=== PATIENT | female | born 1965 | race Caucasian/White ===

== ENCOUNTER → 2019-10-16 08:42 | Outpatient (CLI) | payer OTHER, SELFPAY ==
--- NOTE | 2019-10-16 08:55 | XR_ITS ---
PROCEDURE: XR KNEE RT 4V CLINICAL INDICATION: right knee pain COMPARISON: No exams were available for comparison FINDINGS: There are mild osteoarthritic changes of the medial compartment and lateral compartment and moderate to severe osteoarthritic change of the patellofemoral joint greater along the lateral facet. Bony spurring is present at the tibial spines and intercondylar notch. IMPRESSION: Osteoarthritis greatest at the patellofemoral joint Dictated by: Omi Naidu MD 10/16/2019 11:48 Electronically signed by Omi Naidu MD in [place] 10/16/2019 11:48
--- NOTE | 2019-10-16 08:55 | XR_ITS ---
PROCEDURE: XR WRIST LT MIN 3V CLINICAL INDICATION: left wrist pain COMPARISON: No exams were available for comparison FINDINGS: No fracture or dislocation. Mild bony hypertrophic changes are present involving the distal and radial aspect of the scaphoid. There is a separate bony density at the lateral aspect of the ulnar styloid process which could be due to an old injury. IMPRESSION: No acute finding. Hypertrophic changes along the distal scaphoid laterally with possible old fracture of the radial styloid Dictated by: Omi Naidu MD 10/16/2019 11:47 Electronically signed by Omi Naidu MD in [place] 10/16/2019 11:47
== END ==
PROVIDERS: PCP Family Medicine; Visit Provider Orthopaedic Surgery
DX: M25.561 Pain in right knee (principal); M25.532 Pain in left wrist
CPT/HCPCS: 73110; 73564

== ENCOUNTER → 2021-03-21 09:42 | Outpatient (CLI) | payer BC, SELFPAY | PROVIDERS: PCP Family Medicine; Visit Provider Physician Assistant | DX: Z20.822 Contact with and (suspected) exposure to COVID-19 (principal) | CPT/HCPCS: U0003 ==

== ENCOUNTER 2022-03-10 08:55 | Emergency (ER) | payer BC, SELFPAY ==
[2022-03-10 09:12] VITALS: BP 142/71; PULSE 82; RESP 19; TEMP 36.7; O2SAT 98; BMI 40.1
--- NOTE | 2022-03-10 09:25 | HMH.EDUTC ---
[facility] [place] Disposition Clinical Impression: Viral upper respiratory infection Disposition: Home, Self-Care Condition on Discharge: Good Instructions: DI for Viral Upper Respiratory Infection -- Adult, Sore Throat, DI for COVID-19 (Suspected or Confirmed ) Additional Instructions: *Monitor Temp, Over the counter Motrin or Tylenol as directed/as needed Tylenol every 4 hours and Motrin every 6 hours (as long as your family doctor has told you that you can take it) for fever or pain. and straight to ER if unable to lower temp less than 101.0 after medication given *Warm salt water gargles may help to soothe the throat *Throat Lozenges *Warm fluids like tea with honey may help to soothe the throat *Sleep elevated *Humidifier/Vaporizer Your throat swab was sent for culture. Those results are typically sent to your primary care. Be sure to follow up in 2-3 days with your family doctor/primary care physician if no improvement so they can review those result and treat if necessary. If you don?t have a primary care doctor, I recommend you get one but in the mean time, you will have to return to a walk in clinic Follow up IMMEDIATELY for new or worsening symptoms or no Noticeable improvement over the next 48-72 hours. 911 for difficulty breathing or swallowing You were tested for today for COVID19 your test result should be back in the next 24-48 hours, you may check your Results on [facility] My Health Portal Make sure to take your Vitamins Vit. C Vit D and Zinc if you can take them Referrals: Provider,Referral, [Primary Care Provider] - As needed Forms: Work/School Release Time of Disposition: 09:31 Medical Decision Making - Gucci Inquiry Pt receiving controlled substance: No Gucci was queried for this patient: No Vital Signs: 03/10/22 09:12 Temperature 98.1 F Temperature Source Oral Pulse Rate [Left] 82 Respiratory Rate 19 Blood Pressure [Right Arm] 142/71 H Blood Pressure Mean [Right Arm] 94 02 Sat by Pulse Oximetry 98 - Lab Data Lab results reviewed: Yes: I reviewed the patient's lab results. Orders (Tests/Meds): ORDERS Category Date Time Status Covid-19 Nasal PCR ([facility]) Routine Lab 03/10/22 09:10 Received Rapid Strep Scrn Group A [Strep Scrn Group A (Rapid)] Lab 03/10/22 09:20 Ordered Stat [facility] [place] HPI - General Stated complaint: covid test Time Seen by Provider: 03/10/22 09:25 Mode of Arrival: Ambulatory Source of Information: Patient Limitations: No Limitations Description of Symptoms (Recalled from Triage Doc. by RN): patient comes in for covid test. patient was exposed tuesday. complains of sore throat HEENT Symptoms (Recalled from RN notes): Yes Resp Symptoms (Recalled from RN notes): No Skin Symptoms (Recalled from RN notes): No MS Symptoms (Recalled from RN notes): No Functional Status (Recalled from RN notes): n/a - History of Present Illness Provider Complaint: Patient states that she was exposed to someone on Tuesday that was COVID positive State that since then she has started having sore throat and not feeling well and she was concerned with COVID so she came in to get tested - Related Data Home Medications Medication Instructions Recorded Confirmed bupropion HCl 150 mg 24 hr tablet, 150 mg PO DAILY 10/16/19 10/16/19 extended release hydrochlorothiazide 25 mg tablet 25 mg PO DAILY 10/16/19 10/16/19 lisinopril 20 1 tab PO DAILY 10/16/19 03/10/22 mg-hydrochlorothiazide 25 mg tablet Allergies Allergy/AdvReac Type Severity Reaction Status Date / Time No Known Allergies Allergy Verified 03/10/22 09:21 - Worker's Comp Is this a Worker's Comp case?: No [facility] History - Hepatitis A Screen Attestation statement:: This patient has been screened for Hepatitis A risk factors. I have reviewed the patient's past medical history: Yes Medical History: Reports:: Anxiety, Depression, Hypertension Laterality Cases: Right: Carpal Tunnel Release, Bilateral: Tonsillecto
[2022-03-10 09:36] VITALS: BP 142/71; PULSE 82; RESP 19; TEMP 36.7
[2022-03-10 09:40] LABS: UTC Strep Screen (Rapid) Negative (Negative)
== END 2022-03-10 09:39 | disposition home or self-care (01) ==
PROVIDERS: Emergency Provider Nurse Practitioner
DX: R06.9 Unspecified abnormalities of breathing (principal)
CPT/HCPCS: 87880; 99212; C9803; G0463; U0003; U0005

== ENCOUNTER 2022-09-26 17:02 | Emergency (ER) | payer OTHER, SELFPAY ==
[2022-09-26 17:03] VITALS: BP 140/74; PULSE 88; RESP 20; TEMP 36.6; O2SAT 97; BMI 39.4
--- NOTE | 2022-09-26 17:19 | EXP.UTC ---
Discharge Plan Disposition Patient Disposition: Home, Self-Care Condition: Good Prescriptions Prescriptions: New ondansetron 4 mg Tablet,Disintegrating 4 mg PO Q8H PRN (Reason: Nausea) Qty: 12 0RF No Action hydrochlorothiazide 25 mg tablet 25 mg PO DAILY lisinopril-hydrochlorothiazide 20-25 mg tablet 1 tab PO DAILY bupropion HCl 150 mg tablet extended release 24 hr 150 mg PO DAILY Referrals Follow up/Referrals: Manisha Barrera APRN [Primary Care Provider] - See instructions Activity Restrictions/Add. Instructions Additional Instructions/Restrictions: Drink plenty of fluids. Take tylenol or ibuprofen for pain or fever. Take the medications as directed. Follow up with your regular doctor. GO TO THE ER FOR ANY WORSENING SYMPTOMS Clinical Impressions Clinical Impression: Pharyngitis, Acute viral syndrome Stand Alone Forms Stand Alone Forms: Work/School Release Instructions Patient Instructions: DI for Viral Syndrome Discharge ED Provider: Chevy Best [facility] [place] General Stated complaint: sore throat, h/a, body aches, no taste/smell Time Seen by Provider: 09/26/22 17:19 History of Present Illness Provider Complaint: She states that for the past 1 days she has had sore throat, chills, n/v, and malaise. Related Data Home Medications Medication Instructions Recorded Confirmed bupropion HCl 150 mg 24 hr tablet, 150 mg PO DAILY 10/16/19 10/16/19 extended release hydrochlorothiazide 25 mg tablet 25 mg PO DAILY 10/16/19 10/16/19 lisinopril 20 1 tab PO DAILY High blood pressure 10/16/19 03/10/22 mg-hydrochlorothiazide 25 mg tablet Previous Rx's Medication Instructions Recorded ondansetron 4 mg disintegrating 4 mg PO Q8H PRN Nausea #12 tabs 09/26/22 tablet Allergies Allergy/AdvReac Type Severity Reaction Status Date / Time No Known Allergies Allergy Verified 03/10/22 09:21 [facility] Disclaimer: The information contained in this section may have been updated after the patient was seen, as this information can be updated by other users. Medical History Depression FHx: cholecystectomy Surgical History History of tonsillectomy Tubal ligation status Social History Smoking Status: Never smoker alcohol intake: never current occupational status: employed Travel in the last 8 weeks: None ROS Obtained: Yes All systems reviewed & no additional complaints except as documented Constitutional Constitutional: Reports chills and Reports fever(s) Eyes Eyes: Denies eye discharge ENT Ears, Nose, Mouth, and Throat: Reports as per HPI Cardiovascular Cardiovascular: Denies chest pain Respiratory Respiratory: Denies chest congestion and Reports cough Gastrointestinal Gastrointestingal: Reports nausea; Denies abdominal pain, constipation, cramping, diarrhea or vomiting Musculoskeletal Musculoskeletal: Denies arthralgias Integumentary/Breasts Skin/Breast: Denies rash Neurologic Neurologic: Denies paresthesias Physical Exam General General appearance: alert and in no apparent distress Head Head exam: atraumatic, normocephalic and normal inspection Eye Eye exam: Present normal appearance, PERRL and EOMI ENT ENT exam: Present mucous membranes moist and normal external ear exam Expanded ENT Exam TM/Canal exam: Bilateral TM: erythema and bulging Nose exam: Absent sinus tenderness Mouth exam: Present normal external inspection; Absent drooling Teeth exam: Present normal inspection Throat exam: Present tonsillar erythema, tonsillomegaly and tonsillar exudate Neck Neck exam: Present normal inspection, full ROM and trachea midline; Absent tenderness, meningismus or lymphadenopathy Chest Chest inspection: Present normal inspection and symmetric chest wall rise; Absent tenderness Respiratory R
[2022-09-26 18:33] LABS: UTC Strep Screen (Rapid) Negative (Negative)
[2022-09-26 19:06] VITALS: BP 140/74; PULSE 88; RESP 20; TEMP 36.6; O2SAT 97
== END 2022-09-26 19:06 | disposition home or self-care (01) ==
PROVIDERS: Emergency Provider Nurse Practitioner Family; PCP Nurse Practitioner Family
DX: U07.1 COVID-19 (principal); J02.9 Acute pharyngitis, unspecified; R51.9 Headache, unspecified; R52 Pain, unspecified; R43.8 Other disturbances of smell and taste
CPT/HCPCS: 87880; 99212; 99213; C9803; G0463; U0003; U0005

== ENCOUNTER 2023-04-05 08:00 | Outpatient (RCR) | payer OTHER, SELFPAY | END 2023-04-05 09:10 | disposition home or self-care (01) | LOC: PT 08:00 | PROVIDERS: PCP Nurse Practitioner Family; Visit Provider Nurse Practitioner Family | DX: I89.0 Lymphedema, not elsewhere classified (principal) | CPT/HCPCS: 97140; 97163; 97164 ==

== ENCOUNTER → 2023-04-20 06:18 | Outpatient (CLI) | payer OTHER, SELFPAY ==
--- NOTE | 2023-04-20 06:28 | NM_ITS ---
APPROVED REPORT Exam: Nuclear Stress Test Indication: chest pain..soa..palpitations..fatigue..high BP..family Hx Patient Location: Outpatient Stress Tech: Di Azevedo [place] Tech:Taylor Dalal KENDRATonny RT(R)(N) Ht: 5 ft 4 in Wt: 230 lbs Bra Size: 38b HR: 84 bpm BP: 121/72 mmHg BSA: 2.08 m2 Rhythm: NSR TID: 1.28 BMI: 39.4 History: chest pain..soa..palpitations..fatigue..high BP..family Hx Procedure: Patient received 0.4 mg of intravenous Lexiscan, resting heart rate 81 bpm, resting blood pressure 121/72 mmHg, with Lexiscan maximum heart rate achieved was 120 bpm which is 85 % of the maximum predicted heart rate and blood pressure was 138/72 mmHg. With Lexiscan, patient denied any complaint of chest pain. Cardiac Stress and Resting SPECT Images: Cardiac Stress and Resting SPECT images were obtained using technetium 99m Myoview 31.5 mCi stress and 10.87 mCi at rest. Resting and stress imaging demonstrate a medium sized, moderate, reversible perfusion defect in the basal to mid anterior LV wall. There is increased transient ischemic dilatation ratio (TID 1.28), suggestive of possible multivessel disease or balanced ischemia. Gated imaging demonstrates normal global LV systolic function. There is mild hypokinesis of the anterior LV wall. LVEF is calculated at 57%. Conclusion: Medium sized, moderate, reversible perfusion defect in the basal to mid anterior LV wall. Findings are suggestive of reversible ischemia. Increased transient ischemic dilatation ratio (TID 1.28), suggestive of possible multivessel disease or balanced ischemia. Gated imaging demonstrates normal global LV systolic function. There is mild hypokinesis of the anterior LV wall. LVEF is calculated at 57%. Electronically signed by : Xin Grullon, 04/28/2023 23:07:16
--- NOTE | 2023-04-20 09:58 | CA_ITS ---
APPROVED REPORT Exam: Pharmacologic Technologist: Di Azevedo Ht: 5 ft 4 in Wt: 233 lbs BSA: 2.09 m2 HR: 84 bpm BP: 121/72 mmHg Rhythm: NSR Indications: Chest Pain Medical History Medications: HCTZ,,,,, FOLIC ACID,,,,, Methotrexate,,,,, MeLOXICAM,,,,, BuPROPION,,,,, Hydroxyzine,,,,, ONdansetron,,,,, Lisinopril HCTZ,,,,, Stress Test Details Test: LEXISCAN HR Resting HR: 84 bpm Max Heart Rate (APMHR): 162 bpm Max HR Achieved: 120 bpm Target HR (85% APMHR): 138 bpm % of APMHR: 74 Recovery HR: 93 bpm BP Resting BP: 121.0/72.0 mmHg Max BP: 138.0/72.0 mmHg Recovery BP: 121.0/59.0 mmHg ECG Resting ECG: Normal sinus rhythm, rightward axis Stress ECG: No change Arrhythmia: None Clinical Exercise duration: 04:01 min Highest Stage Achieved: Exercise capacity: 1.0 METs Stress ECG Conclusion Symptoms: Nausea, flushed. No chest pain. Arrhythmias/Ectopy: None ST-T Changes: No significant changes. Conclusion: Unremarkable Lexiscan stress. Myoview images reported separately. Test Summary REST . . . . . . . Resting REST 08:34 . . 84 . 121/ 72 . . Stage 1 01:00 . . 116 . . . . Stage 2 01:00 . . 109 . 129/ 67 . . Stage 3 01:00 . . 106 . . . . Stage 4 01:00 . . 99 . 138/ 72 . . Stage 4 01:01 . . 99 . 138/ 72 . Stop exercise at 04:01 RECOVERY 01:00 . . 99 . . . . RECOVERY 02:00 . . 97 . 131/ 66 . . RECOVERY 03:00 . . 93 . 131/ 66 . . RECOVERY 03:38 . . 97 . 121/ 59 . . Electronically signed by : Xin Grullon, 04/25/2023 09:35:21
== END ==
LOC: RAD 06:24
PROVIDERS: PCP Nurse Practitioner Family; Visit Provider Nurse Practitioner Family
DX: I20.8 Other forms of angina pectoris (principal); I10 Essential (primary) hypertension; L40.50 Arthropathic psoriasis, unspecified
CPT/HCPCS: 78452; 93017; A9502; J2785

== ENCOUNTER 2023-05-05 08:06 | Day surgery (SDC) | payer OTHER, SELFPAY ==
[2023-05-05] VITALS (12 sets, daily range): BP systolic 82–160; BP diastolic 41–100; PULSE 55–75; RESP 17–20; TEMP 37; O2SAT 93–99; BMI 40.1
--- NOTE | 2023-05-05 07:18 | IR_ITS ---
APPROVED REPORT Patient Location: Outpatient Clinical Staff Rn: RUBEN Payne RT (R) PROCEDURES Left heart catheterization Left ventriculogram Selective coronary angiogram INDICATION Abnormal Myoview, Angina pectoris Informed consent was obtained prior to the procedure. COMPLICATIONS NONE Estimated Blood Loss: LESS THAN 10 ML TECHNIQUE One percent lidocaine used to anesthetize the right anterior aspect of the wrist. The right radial artery was accessed via the Seldinger technique. A 6 German sheath was placed in the right radial artery. 2.5 mg of Verapamil, 800 mcg of nitroglycerin, 1mg Lidocaine and 5000 U Heparin were given through the arterial sheath. The papa catheter was also used to perform left heart catheterization, left ventriculogram and selective coronary angiogram. At the end of the procedure the sheath was removed good hemostasis was achieved using Traclet band, patient was transferred to the postop holding area in stable condition. ANGIOGRAPHIC RESULTS The left main artery Normal The left anterior descending artery Normal The circumflex artery Normal The right coronary artery Dominant normal The THAYER ventriculogram reveals Normal 65% The left ventricular end-diastolic pressure 20 mmHg IMPRESSION Normal coronary arteries Normal ejection fraction Elevated LVEDP consistent with diastolic dysfunction PLAN 1. Medical management Electronically signed by : Cl Rodarte MD 05/05/2023 11:45:01
--- NOTE | 2023-05-05 08:30 | CA_ITS ---
APPROVED REPORT EXAM: Comprehensive 2D, Doppler, and color-flow Echocardiogram Door To Door Selling Agent: Hannah Erwin CRT Ht: 5 ft 4 in Wt: 234lbs BSA: 2.09 BP: 152/68 mmHg Indications: Abnormal GXT, Chest Pain, Shortness of Breath, Obesity, Fatigue 2D Dimensions LVOT 1.88 cm (M/F) 1.5-2.5 LA Volume 26.40 mL LA Volume Index 12.30 mL/m2 (M/F) 16-34 M-Mode Dimensions RVDd 1.94 cm (0.9-2.6) LA Diam 3.60 cm (1.9-4.0) LVDd 4.77 cm (3.5-5.7) Ao Diam 3.05 cm (2.0-3.7) LVDs 2.94 cm (3.5-5.7) IVSd 1.11 cm (0.6-1.1) PWd 0.57 cm (0.6-1.1) EF (Teich) 68.60% FS 38.40% EDV (Teich) 106.00 mL TAPSE 2.50 (<1.7) ESV (Teich) 33.30 mL LV Diastology E Decel Time 133.00 (160-240 msec) E/A Ratio 1.11 MED E' 8.60 (< 7 cm/sec) MED A' 10.10 cm/s E'/MED E' Ratio 8.28 (>14) LAT E' 8.40 (<10 cm/sec) LAT A' 8.70 cm/s E/LAT E' Ratio 8.48 (>14) Aortic Valve AO Peak GR. 9.80 mmHg Mitral Valve MV A Velocity 64.00 (40-130 cm/s) E/A Ratio 1.11 MV Decel. Time 133.00 (160-240 ms) Pulmonary Valve PV Peak Velocity 90.00 (50-150 cm/s) Tricuspid Valve TR P. Velocity 229.00 cm/s RAP Estimate 10.00 mmHg RVSP 31.00 mmHg Left Ventricle The left ventricle is normal size. The left ventricular systolic function is normal. The left ventricular ejection fraction is within the normal range. There is normal left ventricular wall thickness. There is normal LV segmental wall motion. The left ventricular diastolic function is normal. LVEF is 55%. Right Ventricle The right ventricle is normal size. The right ventricular systolic function is normal. Atria The left atrium size is normal. The right atrium size is normal. There is no Doppler evidence of interatrail shunt. Aortic Valve The aortic valve opens well. There is no aortic valvular stenosis. No aortic regurgitation. Mitral Valve The mitral valve is normal in structure. No evidence of mitral valve stenosis. Trace mitral regurgitation. Tricuspid Valve The tricuspid valve leaflets are thin and pliable. Trace tricuspid regurgitation. RVSP is normal. Pulmonic Valve The pulmonary valve is normal in structure. Trace pulmonic regurgitation. Great Vessels The aortic root is normal in size. The ascending aorta is normal in size. IVC is normal in size and collapses >50% with inspiration. Pericardium There is no pericardial effusion. Other Information Study Quality: Fair Conclusion Normal biventricular systolic function. No significant valvular stenosis or regurgitation. Electronically signed by : Xin Grullon MD 05/08/2023 15:13:16
[2023-05-05 09:30] LABS: MANUAL DIFFERENTIAL MANUAL DIFFERENTIAL (MANUAL DIFF)
[2023-05-05 09:34] LABS: Basophils % 0.6 % (0.1-2.0); Chloride 103 mmol/L (98-107); Eosinophils # 0.2 K/mm3 (0.0-0.4); Eosinophils % 2.5 % (0.1-12.0); Hematocrit 44.7 % (37.0-47.0); Hemoglobin 14.3 g/dL (12.2-16.2); Lymphocytes # 1.6 K/mm3 (0.7-4.5); Lymphocytes % 23.4 % (10-50); Mean Corpuscular HGB Conc 31.9 g/dL (31.8-35.4); Mean Corpuscular Hemoglobin 30.3 pg (27.0-31.2); Mean Corpuscular Volume 94.9 fl (81-99); Mean Platelet Volume 8.4 fl (7.4-10.4); Monocytes # 0.5 K/mm3 (0.1-1.0); Monocytes % 6.6 % (1.7-9.3); Neutrophils # 4.6 K/mm3 (1.8-7.8); Neutrophils % 66.9 % (37.0-80.0); Platelet Count 290 K/mm3 (142-424); Red Blood Count 4.71 M/mm3 (4.20-5.40); Red Cell Distribution Width 13.3 % (11.5-17.5); Sodium 143 mmol/L (136-145); White Blood Count 6.9 K/mm3 (4.8-10.8)
[2023-05-05 09:37] LABS: Blood Urea Nitrogen 20 mg/dl (7-17); Calcium 8.8 mg/dl (8.4-10.2); Carbon Dioxide 29 mmol/L (22.0-30.0); Creatinine Clearance Estimated 127 mL/min (50-200); Estimated Glomerular Filt Rate 73 ml/min (>60); GFR (African American) 89 ML/MIN (>60); Glucose 102 mg/dl (74-100)
[2023-05-05 10:08] LABS: Eosinophils % 2 % (0-3); Lymphocytes % 26 % (10-50); Monocytes % 7 % (2-9); Neutrophils % 63 % (42-76); Platelet Estimate Normal; Total Cells Counted 100
[2023-05-05 10:09] LABS: RBC Morphology Normal
== END 2023-05-05 14:17 | disposition home or self-care (01) ==
PROVIDERS: PCP Nurse Practitioner Family; Visit Provider Internal Medicine
DX: I20.8 Other forms of angina pectoris (principal); I10 Essential (primary) hypertension; L40.50 Arthropathic psoriasis, unspecified; R06.02 Shortness of breath; R94.31 Abnormal electrocardiogram [ECG] [EKG]; R94.39 Abnormal result of other cardiovascular function study; Z79.899 Other long term (current) drug therapy
CPT/HCPCS: 80048; 85007; 85014; 85018; 85048; 85049; 93306; 93458; 99152; C1725; C1760; C1769; J1644; Q9967

== ENCOUNTER → 2023-05-28 10:43 | Outpatient (CLI) | payer OTHER, SELFPAY ==
[2023-05-28 11:45] LABS: Anion Gap 12.5 mEq/L (5-15); Blood Urea Nitrogen 21 mg/dl (7-17); Calcium 9.6 mg/dl (8.4-10.2); Carbon Dioxide 32 mmol/L (22.0-30.0); Chloride 101 mmol/L (98-107); Estimated Glomerular Filt Rate 73 ml/min (>60); GFR (African American) 89 ML/MIN (>60); Glucose 94 mg/dl (74-100); Potassium 4.5 mmoL/L (3.5-5.1); Sodium 141 mmol/L (136-145)
== END ==
LOC: LAB 10:44
PROVIDERS: PCP Nurse Practitioner Family; Visit Provider Nurse Practitioner Family
DX: I10 Essential (primary) hypertension (principal); R60.9 Edema, unspecified
CPT/HCPCS: 36415; 80048

== ENCOUNTER → 2023-06-17 16:52 | Outpatient (CLI) | payer OTHER, SELFPAY ==
[2023-06-17 18:26] LABS: Hemoglobin A1C 5.5 % (4.0-6.0)
[2023-06-17 18:40] LABS: Thyroid Stimulating Hormone 3.38 uIU/mL (0.465-4.68)
[2023-06-17 18:59] LABS: Vitamin B12 373 pg/mL (239-931)
== END ==
PROVIDERS: PCP Nurse Practitioner Family; Visit Provider Nurse Practitioner Family
DX: R63.5 Abnormal weight gain (principal); Z68.39 Body mass index [BMI] 39.0-39.9, adult
CPT/HCPCS: 36415; 82607; 83036; 84443

== ENCOUNTER 2024-09-17 12:12 | Outpatient (CLI) | payer OTHER, SELFPAY ==
[2024-09-17 12:36] LABS: Basophils % 0.5 % (0.1-2.0); Eosinophils # 0.2 K/mm3 (0.0-0.4); Eosinophils % 2.5 % (0.1-12.0); Hematocrit 39.2 % (37.0-47.0); Hemoglobin 12.7 g/dL (12.2-16.2); Lymphocytes # 2.3 K/mm3 (0.7-4.5); Lymphocytes % 30.1 % (10-50); Mean Corpuscular HGB Conc 32.4 g/dL (31.8-35.4); Mean Corpuscular Hemoglobin 29.4 pg (27.0-31.2); Mean Corpuscular Volume 90.7 fl (81-99); Mean Platelet Volume 10.3 fl (7.4-10.4); Monocytes # 0.8 K/mm3 (0.1-1.0); Monocytes % 11.2 % (1.7-9.3); Neutrophils # 4.2 K/mm3 (1.8-7.8); Neutrophils % 55.3 % (37.0-80.0); Platelet Count 276 K/mm3 (142-424); Red Blood Count 4.32 M/mm3 (4.20-5.40); Red Cell Distribution Width 13.5 % (11.5-17.5); White Blood Count 7.5 K/mm3 (4.8-10.8)
[2024-09-17 13:26] LABS: Alanine Aminotransferase 27 U/L (12-78); Albumin Level 4.4 g/dl (3.5-5.0); Alkaline Phosphatase 66 U/L (38-126); Anion Gap 12.2 mEq/L (5-15); Aspartate Amino Transferase 29 U/L (14-36); Bilirubin,Total 0.3 mg/dl (0.2-1.3); Blood Urea Nitrogen 16 mg/dl (7-17); Calcium 9.4 mg/dl (8.4-10.2); Carbon Dioxide 31 mmol/L (22.0-30.0); Chloride 105 mmol/L (98-107); Estimated Glomerular Filt Rate 73 ml/min (>60); GFR (African American) 89 ML/MIN (>60); Globulin 2.2 g/dL (1.3-3.2); Glucose 77 mg/dl (74-100); Potassium 4.2 mmoL/L (3.5-5.1); Sodium 144 mmol/L (136-145); Total Protein,Serum 6.6 g/dl (6.3-8.2)
== END 2024-09-17 23:59 | disposition home or self-care (01) ==
PROVIDERS: PCP Nurse Practitioner Family; Visit Provider Nurse Practitioner Family
DX: R25.2 Cramp and spasm (principal); I10 Essential (primary) hypertension; F43.9 Reaction to severe stress, unspecified
CPT/HCPCS: 36415; 80053; 83735; 85025

== ENCOUNTER 2025-04-12 12:01 | Outpatient (CLI) | payer OTHER, SELFPAY ==
--- OUTSIDE RECORDS SUMMARY | 2025-04-11 09:30 | XMS_ITS | Encounter Summary ---
Author Organization [facility] Address [address] [place] [address] Care Team Providers Care Professor Of Art Name Role Phone Manisha Barrera MACHINE COREMAKER Primary Care Provider Reason for Visit * Reason Comments 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 Encounter Details Date Type Department Care Team (Late st Contact Info) Description 04/11/2025 9:30 AM EDT Office Visit [facility] RHEUMATOLOGY [address] [phone] Jay Azevedo MD [address] [phone] 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 (Primary Dx); [facility] (current) use of non-steroidal anti-inflammatories (nsaid); High [...] provider who specializes in treating this condition (door person). How is this treated? The goal of [...] a PsA support group. General instructions Take kxpp-xol-dztxmwd and prescription medicines only as told by [...] Foundation: www.psoriasis.org Where to find more information [place] [employer]: www.aad.org [place] [employer]: www.rheumatology.org Contact a health [...] the National Suicide Prevention Lifeline at or 040. This is open 24 hours a day. Text the Crisis Text Line at 125919. Summary 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, or PsA, is a [...] provider. Document Revised: 09/20/2022 Document Reviewed: 09/20/2022 [employer] Patient Education ?? 2023 [employer]. Sulfasalazine Tablets What is this medication? SULFASALAZINE [...] these conditions: Asthma Blood disorders or anemia Kkxmghq-2-sveplenrl dehydrogenase (G6PD) deficiency Intestinal obstruction Kidney disease [...] may report side effects to FDA at 0-570-IMG-1671. Where should I keep my medication? Keep [...] sent through Care Everywhere. * Risankizumab Injection ([place]) documented in this encounter Progress Notes * [...] have a + DEANGELO 1:160 and + AIR PRESS OPERATOR 101, so MCTD has been considered. However, [...] Mcrae + psoriasis, + DEANGELO 1:160, + AIR PRESS OPERATOR 101. She has had synovitis. Previous Rx: [...] heart, and with her + DEANGELO and AIR PRESS OPERATOR, I do not want to complicate this [...] return For intermittent muscle cramps of recommended npjw-jla-rivoesk magnesium slow release 400 mg - RTC [...] flares in interim 1. 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 2. MCC (current) use of non-steroidal anti-inflammatories (nsaid) 3. [...] those that have changed. Jay Azevedo MD [facility] [place] [facility] [place] documented in this encounter Plan of Treatment Upcoming Encounters Date Type Department Care Team (Late st Contact Info) Description 08/21/2025 9:15 AM EST Office Visit 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
--- OUTSIDE RECORDS SUMMARY | 2025-04-11 10:15 | XMS_ITS | Encounter Summary ---
Author Organization [facility] Address [address] [place] [address] Care Team Providers Care Factory Process Workers Name Role Phone BruceAmyManishaosvaldo MONTES Primary Care Provider Encounter Details Date Type Department Care Team (Late Contact Info) Description 04/11/2025 10:15 AM EDT Ancillary Procedure [facility] [address] [phone] Social History Tobacco Use Types [...] Description 08/21/2025 9:15 AM EST Office Visit [facility] [address] [phone] Nancy Braga APRN [address] [address] Pending Results Name Type Priority Associated Diagnoses Date /Time XR Hand 2 View Bilateral Imaging Routine 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 04/11/2025 10:06 AM EDT documented as of this encounter Visit Diagnoses Not on filedocumented in this encounter Care Teams Factory Process Workers Relationship Specialty Start Date End Date Manisha Barrera APRN [address] [place] [address] PCP - General Internal Medicine 02/23/24 documented as of this encounter
--- OUTSIDE RECORDS SUMMARY | 2025-04-12 12:05 | XMS_ITS ---
Author Organization [facility] Address [address] [place] [id number] Care Team Providers Care Adjunct Professor Of English Name Role Phone Manisha Barrera APRN Primary Care Provider Rheumatology - External Fill Status:Enrolled (Active) Start date:02/23/2024 Enrollment date:02/23/2024 Enrollment reason:Identified as being on target medication Current support & services provided:Benefits Investigation, External Pharmacy Dispensing Linked medications:Adalimumab (Patient Reported) Linked problems: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 (Active) Continued Care and Services Coordination
--- OUTSIDE RECORDS SUMMARY | 2025-04-12 12:05 | XMS_ITS | Encounter Summary ---
Author Organization [facility] Address [address] [place] [address] Care Team Providers Care Diesel Engine Tester Name Role Phone Manisha Barrera SIMON Primary Care Provider Encounter Details Date Type Department Care Team (Late st Contact Info) Description 11/08/2024 Results Follow-Up [facility] [address] [phone] Nancy Braga, ENVIRONMENTAL ENGINEERING PROFESSOR [address] [address] Social History Tobacco Use Types Packs/Day Years [...] Description 08/21/2025 9:15 AM EST Office Visit [facility] [address] [phone] Nancy Braga, ENVIRONMENTAL ENGINEERING PROFESSOR [address] [address] documented as of this encounter Visit Diagnoses Not on filedocumented in this encounter Care Teams Diesel Engine Tester Relationship Specialty Start Date End Date Manisha Barrera APRN [facility] [address] [facility]31 PCP - General Internal Medicine 02/23/24 documented as of this encounter
--- OUTSIDE RECORDS SUMMARY | 2025-04-12 12:05 | XMS_ITS | Encounter Summary ---
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) Social History Tobacco Use Types Packs/Day Years [...] Encounters Date Type Department Care Team (Late Contact Info) Description 08/21/2025 9:15 AM EST Office Visit [facility] 330 [facility] [address] [place] [address] Nancy Braga APRN [address] [address] documented as of this encounter Visit Diagnoses Diagnosis 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
--- OUTSIDE RECORDS SUMMARY | 2025-04-12 12:05 | XMS_ITS | Encounter Summary ---
Author Organization [facility] Address [address] [place] [address] Care Team Providers Care Solar Mechanical Engineer Name Role Phone Manisha Barrera APRN Primary Care Provider Encounter Details Date Type Department Care Team (Latest Contact Info) Description 04/11/2025 Travel Social History Tobacco Use Types Packs/Day Years [...] Description 08/21/2025 9:15 AM EST Office Visit [facility] [address] [place] [phone] Nancy Braga APRN [address] [facility] [address] [place] [address] documented as of this encounter Visit Diagnoses Not on filedocumented in this encounter Care Teams Solar Mechanical Engineer Relationship Specialty Start Date End Date Manisha Barrera APRN [address] [facility] [address] [address] [place] [address] PCP - General Internal Medicine 02/23/24 documented as of this encounter
--- OUTSIDE RECORDS SUMMARY | 2025-04-12 12:05 | XMS_ITS | Clinical Summary ---
Author Organization [facility] Address [address] [place] [address] Care Team Providers Care Learning And Development Coordinator Name Role Phone Manisha Barrera APRN Primary Care Provider Allergies Active Allergy Reactions Criticality Noted Date Comments Codeine Nausea And Vomiting,GI Intolerance High 0 04/08/2017 Medications buPROPion XL (WELLBUTRIN XL) 150 MG 24 hr tablet Take 1 tablet by mouth Daily. Active betamethasone dipropionate 0.05 % lotion Apply topically to the appropriate area as directed 2 (Two) Times a Day. Active spironolactone (ALDACTONE) 50 MG tablet Take 1 tablet by mouth Daily. Active bisoprolol (ZEBeta) 5 MG tablet Take 1 tablet by mouth Daily. Active furosemide (LASIX) 40 MG tablet Take 1 tablet by mouth Daily. Active hydrOXYzine (ATARAX) 25 MG tabletIndicatio ns: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,alf (current) use of non-steroidal anti-inflammato christina (nsaid) Take 1 tablet by mouth Daily As Needed for Itching. 30 tablet 5 11/09/19 25 Active Risankizumab-rz aa (Skyrizi Pen) 150 MG/ML solution auto-injector Inject 150 mg under the skin into the appropriate area as directed Every 12 (Twelve) Weeks. 1 mL 1 04/11/20 25 Active lisinopril (PRINIVIL,ZESTR IL) 20 MG tablet Take 1 tablet by mouth Daily. 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 540 tablet 1 04/11/20 25 Active meloxicam (MOBIC) 7.5 MG tabletIndicatio ns: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,alf (current) use of non-steroidal anti-inflammato christina (nsaid) Take 1 tablet by mouth Daily As Needed for Mild Pain. 30 tablet 5 11/09/19 25 2024 Discontinued sulfaSALAzine (AZULFIDINE) 500 MG tabletIndicatio ns: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,alf (current) use of non-steroidal anti-inflammato christina (nsaid) Take 2 tablets by mouth 2 (Two) Times a Day. 120 tablet 3 11/09/19 25 2024 Discontinued Risankizumab-rz aa (Skyrizi Pen) 150 MG/ML solution auto-injector Inject 150 mg under the skin into the appropriate area as directed Every 28 (Twenty-Eight) Days. Loading dose of 150mg at week 0 and 4 1 mL 1 11/09/19 25 2024 Discontinued Risankizumab-rz aa (Skyrizi Pen) 150 MG/ML solution auto-injector Inject 150 mg under the skin into the appropriate area as directed Every 12 (Twelve) Weeks. 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 Persaud-- too mild to require treatment alone at this time. ANCAs have been negative No flares in interim Assessment & Plan (02/21/2024 12:41 PM EDT): Dr. Persaud-- too mild to require treatment alone at this time. - ANCAs have been negative High risk medication use 02/17/2024 Assessment & Plan (07/06/2024 11:31 AM EST): - Trial SSZ - need CBC, CMP, ESR, CRP every 2-3 months - Hepatitis panel negative 02/2023 - QTB negative 02/23/24 Assessment & Plan (02/23/2024 9:52 AM EDT): - Trial leflunomide - need CBC, CMP, ESR, CRP every 2-3 months on current medications - QTB and hepatitis panel negative 02/2023- update today -Risks and benefits of leflunomide were discussed with the patient. Handout provided. alf (current) use of n on-steroidal anti-inflammatories (nsaid) 02/17/2024 Assessment & Plan (07/06/2024 11:32 AM EST): -Continue meloxicam -We discussed that she should not take meloxicam and OTC NSAIDs concurrently. -Risks of NSAIDs discussed including GI upset, GI bleeding, renal and hepatic risks and the risks of cardiovascular disease and stroke. Warned patient not to take with other NSAIDs including OTC NSAIDs Assessment & Plan (02/23/2024 9:52 AM EDT): -Continue meloxicam -Today she reports she has been taking meloxicam with ibuprofen and naproxen. We discussed that she can only take 1 NSAID at a time. She should not take these medications concurrently. -Risks of NSAIDs discussed including GI upset, GI bleeding, renal and hepatic risks and the risks of cardiovascular disease and stroke. Warned patient not to take with other NSAIDs including OTC NSAIDs Other fatigue 02/17/2024 Assessment & Plan (07/06/2024 11:18 AM EST): QTB negative 02/23/24 Assessment & Plan (02/23/2024 9:53 AM EDT): -Update QTB today Psoriasis 02/15/2024 Assessment & Plan (07/06/2024 11:18 AM EST): - immunosuppression as above Assessment & Plan (02/21/2024 12:42 PM EDT): - immunosuppression as above 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 02/15/2024 Assessment & Plan (07/06/2024 11:30 AM EST): + psoriasis, + DEANGELO 1:160, + AGRICULTURE SCIENTIST 101. She has had synovitis. Previous Rx: Plaquenil (flared psoriasis), MTX (hair loss/GI upset), Cosentyx, leflunomide (GI upset/hair loss) Current Rx: SSZ start 07/08 X-ray (10/2021): without erosions or periarticular osteopenia. Moderate disease activity. -She reports methotrexate caused her to have hair loss and GI upset so she stopped taking this -She reports she took a couple doses of Cosentyx but did not see a difference so she stopped taking it -She did not tolerate leflunomide with hair loss and GI upset - Will trial SSZ 500 mg BID - Consider addition of biologic if no improvement on sulfasalazine - There has been uncertainty of what is going on with her heart, and with her + DEANGELO and AGRICULTURE SCIENTIST, I do not want to complicate this by adding an anti-TNF - MCTD is still on the differential. Per prior notes, Dr. Thompson said she does not have evidence of PAH or congestive heart failure that could be a symptom of active MCTD - we will continue to treat for inflammatory arthritis in setting of psoriasis. 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 She has had synovitis. Previous Rx: Plaquenil (flared psoriasis), MTX (hair loss/GI upset), Cosentyx Current Rx: leflunomide X-ray (10/2021): without erosions or periarticular osteopenia. Moderate disease activity. - She has been off medication for her PSA since October -She reports methotrexate caused her to have hair loss and GI upset so she stopped taking this -She reports she took a couple doses of Cosentyx but did not see a difference so she stopped taking it - trial leflunomide 20 mg daily -Will send in prednisone taper today. - There has been uncertainty of what is going on with her heart, and with her + DEANGELO and AGRICULTURE SCIENTIST, I do not want to complicate this by adding an anti-TNF - MCTD is still on the differential. Per prior notes, Dr. Thompson said she does not have evidence of PAH or congestive heart failure that could be a symptom of active MCTD - we will continue to treat for inflammatory arthritis in setting of psoriasis. - I emphasized the importance of compliance with her office visits, as well as labs every 2-3 months - RTC 3 months Resolved Problems Problem Noted Date Diagnosed Date Resolved Date Undifferentiated connective tissue disease 02/15/2024 07/06/2024 Overview (02/15/2024): 12/07/2021 Encounters Date Type Department Care Team Description 04/11/2025 10:15 AM EDT Ancillary Procedure [facility] [address] [place] [phone] 04/11/2025 9:30 AM EDT Office Visit [facility] [address] [place] [phone] Jay Azevedo MD 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 (Primary Dx); alf (current) use of non-steroidal anti-inflammatories (nsaid); High risk medication use; Vitamin D deficiency; Other fatigue 04/11/2025 Travel 03/30/2025 Refill [facility] [address] [place] [phone] Jay Azevedo MD 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; alf (current) use of non-steroidal anti-inflammatories (nsaid) from Last 3 Months Family History Medical History Relation Name Comments COPD Brother Emphysema Father Hypertension Father Lung cancer Mother Lupus Sister Uterine cancer Sister Relation Name Status Comments Brother Father Mother Sister Social History Tobacco Use Types Packs/Day Years Used Date Smoking Tobacco: Never Smokeless Tobacco: Never Alcohol Use Standard Drinks/Week Comments No 0 (1 standard drink = 0.6 oz pur e alcohol) Comments No Sex and Gender Information Value Date Recorded Sex Assigned at Not on file Legal Sex Female 10:17 AM EDT Gender Identity Not on file Sexual Orientation Not on file Last Filed Vital Signs Vital Sign Reading Time Taken Comments Blood Pressure 124/76 04/11/2025 9:18 AM EDT Pulse 93 04/11/2025 9:18 AM EDT Temperature 36.2 C (97.2 F) 04/11/2025 9:18 AM EDT Respiratory Rate 16 04/11/2025 9:18 AM EDT Oxygen Saturation 96% 04/08/2017 12:35 PM EDT Inhaled Oxygen Concentration - - Weight 102 kg (224 lb 12.8 oz) 04/11/2025 9:18 A M EDT Height 162.6 cm (5' 4.02 ) 04/11/2025 9:18 AM ED T Body Mass Index 38.57 04/11/2025 9:18 AM EDT Plan of Treatment Upcoming Encounters Date Type Department Care Team (Late st Contact Info) Description 08/21/2025 9:15 AM EST Office Visit [facility] [address] [phone] Nancy Braga APRN [address] [address] Health Maintenance Due Date Last Done Comments Annual Gynecologic Pelvic and Breast Exam 1964 TDAP/TD VACCINES (1 - Tdap) 1983 PAP SMEAR 1985 MAMMOGRAM 2004 COLOGUARD 2009 COLON CANCER SCREENING 5 YEAR SIGMOIDOSCOPY 2009 COLONOSCOPY [address] CAN[address]ER SCREENING 2009 [address] COLONOGRAPHY 2009 FECAL OCCULT BLOOD TEST 2009 FIT Testing (1 year) 2009 Pneumococcal Vaccine 50+ (1 of 1 - PCV) 2014 ZOSTER VACCINE (1 of 2) 2014 ANNUAL PHYSICAL 04/08/2017 HEPATITIS C SCREENING 04/08/2017 COVID-19 Vaccine ( season) 2024 INFLUENZA VACCINE 05/15/2025 Insurance [facility] [place] [id number] Care Teams Learning And Development Coordinator Relationship Specialty Start Date End Date Manisha Barrera APRN [address] [place] [address] [place] [address] PCP - General Internal Medicine 02/23/24
[2025-04-12 12:45] LABS: Hematocrit 33.9 % (37.0-47.0); Hemoglobin 11.1 g/dL (12.2-16.2); Immature Granulocytes % 0.3 %; Mean Corpuscular HGB Conc 32.7 g/dL (31.8-35.4); Mean Corpuscular Hemoglobin 31.1 pg (27.0-31.2); Mean Corpuscular Volume 95.0 fl (81-99); Nucleated Red Blood Cells % 0 %; Platelet Count 276 K/mm3 (142-424); Red Blood Count 3.57 M/mm3 (4.20-5.40); Red Cell Distribution Width-SD 43.5 fL; White Blood Count 9.6 K/mm3 (4.8-10.8)
[2025-04-12 13:26] LABS: Albumin Level 4.2 g/dl (3.5-5.0); Chloride 107 mmol/L (98-107)
[2025-04-12 13:27] LABS: Potassium 4.4 mmoL/L (3.5-5.1); Sodium 140 mmol/L (136-145)
[2025-04-12 13:29] LABS: Alanine Aminotransferase 13 U/L (12-78); Albumin/Globulin Ratio 1.8 (1.1-1.8); Alkaline Phosphatase 61 U/L (38-126); Anion Gap 13.4 mEq/L (5-15); Aspartate Amino Transferase 19 U/L (14-36); Bilirubin,Total 0.4 mg/dl (0.2-1.3); Blood Urea Nitrogen 40 mg/dl (7-17); Carbon Dioxide 24 mmol/L (22.0-30.0); Cholesterol 184 mg/dl (140-200); Creatinine,Serum 2.30 mg/dl (0.52-1.04); Estimated Glomerular Filt Rate 22 ml/min (>60); GFR (African American) 26 ML/MIN (>60); Globulin 2.4 g/dL (1.3-3.2); Total Protein,Serum 6.6 g/dl (6.3-8.2); Triglycerides 157 mg/dl (30-150)
[2025-04-12 13:30] LABS: Calcium 9.3 mg/dl (8.4-10.2); Glucose 90 mg/dl (74-100); HDL Cholesterol 33 mg/dl (40-60)
[2025-04-12 14:02] LABS: Thyroid Stimulating Hormone 2.39 uIU/mL (0.465-4.68)
== END 2025-04-12 23:59 | disposition home or self-care (01) ==
LOC: LAB 12:03
PROVIDERS: Physician Assistant; PCP Nurse Practitioner Family; Visit Provider Nurse Practitioner Family
DX: I10 Essential (primary) hypertension (principal); R53.83 Other fatigue; R63.5 Abnormal weight gain
CPT/HCPCS: 36415; 80053; 80061; 84443; 85025

== ENCOUNTER 2025-04-16 11:11 | Outpatient (CLI) | payer OTHER, SELFPAY ==
--- OUTSIDE RECORDS SUMMARY | 2025-04-11 09:30 | XMS_ITS | Encounter Summary ---
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 How is this treated? The goal of [...] a PsA support group. General instructions Take xmek-sim-vczoojf and prescription medicines only as told by [...] Foundation: www.psoriasis.org Where to find more information [place] [employer]: www.aad.org [place] [employer]: www.rheumatology.org Contact a health [...] the National Suicide Prevention Lifeline at or 327. This is open 24 hours a day. Text the Crisis Text Line at 937422. Summary 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, or PsA, is a [...] provider. Document Revised: 09/20/2022 Document Reviewed: 09/20/2022 [employer] Patient Education ?? 2023 [employer]. Sulfasalazine Tablets What is this medication? SULFASALAZINE [...] these conditions: Asthma Blood disorders or anemia Kffsbyj-7-awobwdbkl dehydrogenase (G6PD) deficiency Intestinal obstruction Kidney disease [...] may report side effects to FDA at [phone]. Where should I keep my medication? Keep [...] have a + DEANGELO 1:160 and + SUPERVISOR SIGN SHOP 101, so MCTD has been considered. However, [...] Mcrae + psoriasis, + DEANGELO 1:160, + SUPERVISOR SIGN SHOP 101. She has had synovitis. Previous Rx: [...] heart, and with her + DEANGELO and SUPERVISOR SIGN SHOP, I do not want to complicate this [...] return For intermittent muscle cramps of recommended wwns-rgi-jafjnsl magnesium slow release 400 mg - RTC [...] flares in interim 1. 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 2. longterm (current) use of non-steroidal anti-inflammatories (nsaid) 3. [...] those that have changed. Jay Azevedo MD [facility] [place] documented in this encounter Plan of Treatment Upcoming Encounters Date Type Department Care Team (Late st Contact Info) Description 08/21/2025 9:15 AM EST Office Visit [facility] RHEUMATOLOGY [address] [phone] Nancy Braga APRN [address] [phone] Pending Results Name Type Priority Associated Diagnoses [...] Diagnoses Diagnosis 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- Primary Psoriatic arthropathy longterm (current) use of non-steroidal anti-inflammatories (nsaid) High risk medication use Vitamin D deficiency Other fatigue documented in this encounter Care Teams Superintendent Custodian Janitor Relationship Specialty Start Date End Date Manisha Barrera APRN [address] [place] [address], [place] [address] PCP - General Internal Medicine 02/23/24 documented as of this encounter
--- OUTSIDE RECORDS SUMMARY | 2025-04-11 10:15 | XMS_ITS | Encounter Summary ---
Author Organization [facility] Address [address] [place] [address] Care Team Providers Care Sterilization Specialist Name Role Phone BruceAmyManishaosvaldo MONTES Primary Care Provider Encounter Details Date Type Department Care Team (Late Contact Info) Description 04/11/2025 10:15 AM EDT Ancillary Procedure [facility] [address] [phone] Social History Tobacco Use Types [...] Description 08/21/2025 9:15 AM EST Office Visit [facility] [address] [phone] Nancy Braga APRN [address] [address] Pending Results Name Type Priority Associated Diagnoses Date /Time XR Hand 2 View Bilateral Imaging Routine 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 04/11/2025 10:06 AM EDT documented as of this encounter Visit Diagnoses Not on filedocumented in this encounter Care Teams Sterilization Specialist Relationship Specialty Start Date End Date Manisha Barrera APRN [address] [place] [address] PCP - General Internal Medicine 02/23/24 documented as of this encounter
[2025-04-16 16:03] LABS: Hemoglobin A1C 5.5 % (4.0-6.0)
[2025-04-16 16:09] LABS: Albumin Level 4.6 g/dl (3.5-5.0); Chloride 104 mmol/L (98-107); Sodium 141 mmol/L (136-145)
[2025-04-16 16:10] LABS: Potassium 4.8 mmoL/L (3.5-5.1)
[2025-04-16 16:12] LABS: Alanine Aminotransferase 14 U/L (12-78); Albumin/Globulin Ratio 1.7 (1.1-1.8); Alkaline Phosphatase 69 U/L (38-126); Anion Gap 15.8 mEq/L (5-15); Aspartate Amino Transferase 20 U/L (14-36); Bilirubin,Total 0.6 mg/dl (0.2-1.3); Blood Urea Nitrogen 26 mg/dl (7-17); Carbon Dioxide 26 mmol/L (22.0-30.0); Creatinine,Serum 1.20 mg/dl (0.52-1.04); Estimated Glomerular Filt Rate 46 ml/min (>60); GFR (African American) 55 ML/MIN (>60); Globulin 2.7 g/dL (1.3-3.2); Total Protein,Serum 7.3 g/dl (6.3-8.2)
[2025-04-16 16:13] LABS: Calcium 9.8 mg/dl (8.4-10.2); Glucose 85 mg/dl (74-100)
[2025-04-16 18:32] LABS: Hepatitis C Ab Qual. W/ RFX NEGATIVE (Negative)
--- OUTSIDE RECORDS SUMMARY | 2025-04-17 11:30 | XMS_ITS | Clinical Summary ---
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 540 tablet 1 04/11/20 25 Active meloxicam (MOBIC) 7.5 MG tabletIndicatio ns: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,long-term (current) use of non-steroidal anti-inflammato christina (nsaid) Take 1 tablet by mouth Daily As Needed for Mild Pain. 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 Handout provided. long-term (current) use of n on-steroidal anti-inflammatories (nsaid) [...] EST): + psoriasis, + DEANGELO 1:160, + PRACTICE MANAGER 101. She has had synovitis. Previous Rx: [...] heart, and with her + DEANGELO and PRACTICE MANAGER, I do not want to complicate this [...] EDT): + psoriasis, + DEANGELO 1:160, + PRACTICE MANAGER 101. She has had synovitis. Previous Rx: [...] heart, and with her + DEANGELO and PRACTICE MANAGER, I do not want to complicate this [...] Description 04/11/2025 10:15 AM EDT Ancillary Procedure [facility] [address] [place] [phone] 04/11/2025 9:30 AM EDT Office Visit [facility] [address] [place] [phone] Jay Azevedo MD 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 (Primary Dx); long-term (current) use of non-steroidal anti-inflammatories (nsaid); High risk medication use; Vitamin D deficiency; Other fatigue 04/11/2025 Travel 03/30/2025 Refill [facility] [address] [place] [phone] Jay Azevedo MD 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; 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
--- OUTSIDE RECORDS SUMMARY | 2025-04-17 11:30 | XMS_ITS ---
Author Organization [facility] Address [address] [place] [id number] Care Team Providers Care Traveling Operator Name Role Phone Manisha Barrera APRN Primary Care Provider Rheumatology - External Fill Status:Enrolled (Active) Start date:02/23/2024 Enrollment date:02/23/2024 Enrollment reason:Identified as being on target medication Current support & services provided:Benefits Investigation, External Pharmacy Dispensing Linked medications:Adalimumab (Patient Reported) Linked problems: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 (Active) Continued Care and Services Coordination
--- OUTSIDE RECORDS SUMMARY | 2025-04-17 11:30 | XMS_ITS | Patient Health Record ---
Author Organization [facility] Address [address] [facility] [address] [place] [address] Care Team Providers Care Car Mechanic Helper Name Role Phone Fely Lopez [phone] Allergies Allergen (clinical drug ingredient) Drug/Non Drug Allergy documented on EMR Reaction Allergy Type Onset Date Status CODEINE PHOSPHATE (CODEINE PHOSPHATE SOLN) Unspecified Drug Allergy 11/21/2012 Active Reason For Referral No Information Problems Problem Type SNOMED Code ICD Code Onset Dates Problem Status W/U Status Risk Notes Problem Cervical smear, as part of routine gynecological examination (Z01.419) 016 Active confirmed Annual without abnormal findings Problem Breakthrough bleeding (93641155) Breakthrough bleeding (N92.1) 013 Active confirmed MET[place]ORRHAGIA Plan Of Treatment No Information Medical (General) History Medical History History ICD Code Acid Reflux High Blood Pressure Heart Disease A Routine MENSTR FLOW: Medium HYDROCHLOROTHIAZIDE 50 MG ORAL TABLET LISINOPRIL 20 MG ORAL TABLET Surgical History Surgery Date(Month/Year) carpal tunnel 2002, R elbow 2002, L toe and foot 2003, c/s 82 and 88, tubal 1987, gall bladder 2010, tonsils 1977
--- OUTSIDE RECORDS SUMMARY | 2025-04-17 11:30 | XMS_ITS | Encounter Summary ---
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
--- OUTSIDE RECORDS SUMMARY | 2025-04-17 11:30 | XMS_ITS | Encounter Summary ---
Author Organization [facility] Address [address] [place] [address] Care Team Providers Care Irrigator Head Name Role Phone Manisha Barrera APRN Primary Care Provider [phone] Encounter Details Date Type Department Care Team [...] Description 08/21/2025 9:15 AM EST Office Visit [facility] RHEUMATOLOGY [address] [place] [phone] Nancy Braga APRN [address] [facility] 100 [place] [address] documented as of this encounter Visit Diagnoses Not on filedocumented in this encounter Care Teams Irrigator Head Relationship Specialty Start Date End Date Manisha Barrera APRN 1210 [facility] [address] [place] [address] [facility] [place] [address] PCP - General Internal Medicine 02/23/24 documented as of this encounter
--- OUTSIDE RECORDS SUMMARY | 2025-04-17 11:30 | XMS_ITS | Encounter Summary ---
Author Organization [facility] Address [address] [place] [address] Care Team Providers Care Sustainability Coordinator Name Role Phone Manisha Barrera SIMON Primary Care Provider Encounter Details Date Type Department Care Team (Late st Contact Info) Description 11/08/2024 Results Follow-Up [facility] RHEUMATOLOGY [address] [address] Nancy Braga, PARTS FABRICATOR [address] [address] Social History Tobacco Use Types Packs/Day Years [...] 08/21/2025 9:15 AM EST Office Visit [facility] RHEUMATOLOG[facility] [address] [address] Nancy Braga, PARTS FABRICATOR [address] [address] documented as of this encounter Visit Diagnoses Not on filedocumented in this encounter Care Teams Sustainability Coordinator Relationship Specialty Start Date End Date Manisha Barrera APRN [facility] [address] [facility]31 PCP - General Internal Medicine 02/23/24 documented as of this encounter
== END 2025-04-16 23:59 | disposition home or self-care (01) ==
LOC: LAB.DROPOF 04-17 11:04
PROVIDERS: PCP Nurse Practitioner Family; Visit Provider Nurse Practitioner Family
DX: N18.4 Chronic kidney disease, stage 4 (severe) (principal); Z11.4 Encounter for screening for human immunodeficiency virus [HIV]; Z11.59 Encounter for screening for other viral diseases
CPT/HCPCS: 80053; 82043; 83036; 86803; 87389

== ENCOUNTER 2025-04-18 12:38 | Outpatient (CLI) | payer OTHER, SELFPAY ==
--- OUTSIDE RECORDS SUMMARY | 2025-04-11 09:30 | XMS_ITS | Encounter Summary ---
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-steroidal anti-inflammatories (nsaid); High risk medication use; Vitamin D deficiency; Other fatigue Social History Tobacco Use Types Packs/Day Years Used Date Smoking Tobacco: Never Smokeless Tobacco: Never Alcohol Use Standard Drinks/Week Comments No 0 (1 standard drink = 0.6 oz pur e alcohol) Comments No Sex and Gender Information Value Date Recorded Sex Assigned at Not on file Legal Sex Female 10:17 AM EDT Gender Identity Not on file Sexual Orientation Not on file documented as of this encounter Last Filed Vital Signs Vital Sign Reading Time Taken Comments Blood Pressure 124/76 04/11/2025 9:18 AM EDT Pulse 93 04/11/2025 9:18 AM EDT Temperature 36.2 C (97.2 F) 04/11/2025 9:18 AM EDT Respiratory Rate 16 04/11/2025 9:18 AM EDT Oxygen Saturation - - Inhaled Oxygen Concentration - - Weight 102 kg (224 lb 12.8 oz) 04/11/2025 9:18 A M EDT Height 162.6 cm (5' 4.02 ) 04/11/2025 9:18 AM ED T Body Mass Index 38.57 04/11/2025 9:18 AM EDT documented in this encounter Patient Instructions * Patient Instructions* Jay Azevedo MD - 04/11/2025 9:30 AM EDT Psoriatic Arthritis 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, or PsA, is a long-term (chronic) condition that causes pain, swelling, and stiffness in the joints. The large joints of the legs, hips, and pelvis are most often affected but it can affect any joint in your body. Most people with PsA have a chronic skin disease that causes itchy scales and patches to form on the skin (psoriasis) before they develop PsA. In some cases, a person may have PsA before or without having psoriasis. PsA can be mild or severe. If untreated, PsA may cause joint damage. What are the causes? The exact cause of this condition is not known. PsA is an autoimmune disease. With this type of disease, the body's defense system (immune system) mistakenly attacks joints and the tissues that connect muscles to joints (tendons). The disease may be activated by a trigger, such as: Infections. Stress. Alcohol. What increases the risk? You are more likely to develop this condition if: You have psoriasis. You have a family history of psoriasis or PsA. You are between the ages of 30 and 50. What are the signs or symptoms? The main symptom of this condition is inflammation of joints and tendons. Other symptoms may include: Joint pain or swelling. Joint stiffness, especially in the morning. Swollen fingers and toes. Pain in areas where tendons connect to bones. Pitted and weak nails. Tiredness (fatigue). Eye redness. Symptoms of this condition vary from person to person. Symptoms may come and go. Sometimes, symptoms get worse for a period of time. This is called a flare. How is this diagnosed? This condition may be diagnosed based on: Your symptoms and medical history. A physical exam. Imaging tests such as an X-ray, a CT scan, or an MRI. Blood tests to look for inflammation and to rule out other causes, such as gout or rheumatoid arthritis. You may also be referred to a health care provider who specializes in treating this condition (final assembler boat). How is this treated? The goal of treatment is to reduce pain and inflammation and to protect joints from damage. Treatment depends on how severe the inflammation is and how many joints are affected. Treatment may include: Medicines. NSAIDs, such as ibuprofen or naproxen. Steroids. These can be taken by mouth or injected into a swollen joint. Disease-modifying anti-rheumatic drugs (DMARDs). These slow the course of the disease. Biologic medicines. These medicines are usually given as injections or through an IV. They can be very effective, but these medicines can increase the risk of developing infections. Physical therapy and other exercises to: Strengthen muscles that support joints. Prevent joint stiffness. Lifestyle changes. It is important to rest as needed, eat a healthy diet, and exercise. A brace or splint to support a painful and swollen joint. Surgery if you have severe joint damage. Management of any associated medical conditions. Inflammation from PsA can affect other parts of the body, including the heart, eyes, or kidneys. Follow these instructions at home: Managing pain, stiffness, and swelling If directed, put ice on painful areas. To do this: If you have a removable brace or splint, remove it as told by your health care provider. Put ice in a plastic bag. Place a towel between your skin and the bag. Leave the ice on for 20 minutes, 2-3 times a day. Remove the ice if your skin turns bright red. This is very important. If you cannot feel pain, heat, or cold, you have a greater risk of damage to the area. If you have a removable brace or splint: Wear the brace or splint as told by your health care provider. Remove it only as told by your health care provider. Check the skin around the brace or splint every day. Tell your health care provider about any concerns. Loosen the brace or splint if your fingers or toes tingle, become numb, or turn cold and blue. Keep the brace or splint clean and dry. Activity Return to your normal activities as told by your health care provider. Ask your health care provider what activities are safe for you. Get regular exercise. Ask your health care provider what type of exercise is best for you. Your health care provider may recommend: Low-impact exercises such as walking, biking, or swimming. Exercises that include stretching, such as marlee chi and yoga. Do not exercise when you have a flare of symptoms. Rest until the symptoms improve. Lifestyle Maintain a healthy weight. A healthy weight will help you stay active and take stress off your joints. Eat a healthy diet that includes plenty of vegetables, fruits, whole grains, low-fat dairy products, and lean protein. Do not eat a lot of foods that are high in solid fats, added sugars, or salt. Use techniques for stress reduction, such as meditation or yoga. Do not use any products that contain nicotine or tobacco. These products include cigarettes, chewing tobacco, and vaping devices, such as e-cigarettes. If you need help quitting, ask your health careprovider. Consider joining a PsA support group. General instructions Take thcx-yew-ntylzym and prescription medicines only as told by your health care provider. Keep a journal to help track your symptoms. Try to avoid any triggers. Do not drink alcohol if your health care provider tells you not to drink. See a mental health therapist if you feel sad, anxious, frustrated, and hopeless. Managing this condition can be challenging and you may feel overwhelmed and depressed. Keep all follow-up visits. Your health care provider may monitor your condition over time to make sure that it does not cause problems or get worse. Where to find support National Psoriasis Foundation: www.psoriasis.org Where to find more information [employer] [employer]: www.aad.org [employer]: www.rheumatology.org Contact a health care provider if: You have a fever or chills. Your symptoms get worse. You feel depressed, frustrated, and hopeless about your condition. Get help right away if: You have thoughts of hurting yourself or others. Get help right away if you feel like you may hurt yourself or others, or have thoughts about takingyour own life. Go to your nearest emergency room or: Call 911. Call the National Suicide Prevention Lifeline at or 211. This is open 24 hours a day. Text the Crisis Text Line at 047990. Summary 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, or PsA, is a long-term condition that causes pain, swelling, and stiffness in the joints. The goal of treatment is to reduce pain and inflammation and to protect joints from damage. Treatment depends on how severe the inflammation is and how many joints are affected. This information is not intended to replace advice given to you by your health care provider. Make sure you discuss any questions you have with your health care provider. Document Revised: 09/20/2022 Document Reviewed: 09/20/2022 [employer] Patient Education ?? 2023 [employer]. Sulfasalazine Tablets What is this medication? SULFASALAZINE (sul fa JOHANNE a zeen) treats ulcerative colitis. It works by decreasing inflammation. It belongs to a group of medications called salicylates. This medicine may be used for other purposes; ask your health care provider or pharmacist if you have questions. COMMON BRAND NAME(S): Azulfidine, Sulfazine What should I tell my care team before I take this medication? They need to know if you have any of these conditions: Asthma Blood disorders or anemia Fspdiny-6-hixfcgytm dehydrogenase (G6PD) deficiency Intestinal obstruction Kidney disease Liver disease Porphyria Urinary tract obstruction An unusual reaction to sulfasalazine, sulfa medications, salicylates, or other medications, foods, dyes, or preservatives or trying to get Breast-feeding How should I use this medication? Take this medication by mouth with a full glass of water. Take it as directed on the prescription label at the same time every day. You can take it with or without food. If it upsets your stomach, take it with food. Keep taking it unless your care team tells you to stop. Talk to your care team about the use of this medication in children. While this medication may be prescribed for children as young as 6 years for selected conditions, precautions do apply. Patients over 65 years old may have a stronger reaction and need a smaller dose. Overdosage: If you think you have taken too much of this medicine contact a poison control center or emergency room at once. NOTE: This medicine is only for you. Do not share this medicine with others. What if I miss a dose? If you miss a dose, take it as soon as you can. If it is almost time for your next dose, take only that dose. Do not take double or extra doses. What may interact with this medication? Digoxin Folic acid This list may not describe all possible interactions. Give your health care provider a list of all the medicines, herbs, non-prescription drugs, or dietary supplements you use. Also tell them if you smoke, drink alcohol, or use illegal drugs. Some items may interact with your medicine. What should I watch for while using this medication? Visit your care team for regular checks on your progress. Tell your care team if your symptoms do not start to get better or if they get worse. You will need frequent blood and urine checks. This medication can make you more sensitive to the sun. Keep out of the sun. If you cannot avoid being in the sun, wear protective clothing and use sunscreen. Do not use sun lamps or tanning beds/booths. Drink plenty of water while taking this medication. What side effects may I notice from receiving this medication? Side effects that you should report to your care team as soon as possible: Allergic reactions--skin rash, itching, hives, swelling of the face, lips, tongue, or throat Aplastic anemia--unusual weakness or fatigue, dizziness, headache, trouble breathing, increased bleeding or bruising Dry cough, shortness of breath or trouble breathing Heart muscle inflammation--unusual weakness or fatigue, shortness of breath, chest pain, fast or irregular heartbeat, dizziness, swelling of the ankles, feet, or hands Infection--fever, chills, cough, sore throat, wounds that don't heal, pain or trouble when passing urine, general feeling of discomfort or being unwell Kidney injury--decrease in the amount of urine, swelling of the ankles, hands, or feet Liver injury--right upper belly pain, loss of appetite, nausea, light-colored stool, dark yellow orbrown urine, yellowing skin or eyes, unusual weakness or fatigue Rash, fever, and swollen lymph nodes Redness, blistering, peeling, or loosening of the skin, including inside the mouth Side effects that usually do not require medical attention (report to your care team if they continue or are bothersome): Dark yellow or orange saliva, sweat, or urine Dizziness Headache Loss of appetite Nausea Upset stomach Vomiting This list may not describe all possible side effects. Call your doctor for medical advice about side effects. You may report side effects to FDA at 1-338-PEO-7850. Where should I keep my medication? Keep out of the reach of children and pets. Store at room temperature between 15 and 30 degrees C (59 and 86 degrees F). Get rid of any unused medication after the expiration date. To get rid of medications that are no longer needed or have : Take the medications to a medication take-back program. Check with your pharmacy or law enforcementto find a location. If you cannot return the medication, check the label or package insert to see if the medication should be thrown out in the garbage or flushed down the toilet. If you are not sure, ask your care team. If it is safe to put it in the trash, take the medication out of the container. Mix the medicationwith cat litter, dirt, coffee grounds, or other unwanted substance. Seal the mixture in a bag or container. Put it in the trash. NOTE: This sheet is a summary. It may not cover all possible information. If you have questions about this medicine, talk to your doctor, pharmacist, or health care provider. ?? 2023 Elsevier/Gold Standard (2022-06-24 00:00:00) * Attachments The following attachments cannot be sent through Care Everywhere. * Risankizumab Injection (Portuguese) documented in this encounter Progress Notes * Jay Azevedo MD - 04/11/2025 9:30 AM EDT Images from the original note were not included. Office Follow Up Date: 04/11/2025 Patient Name: Georgia Watts Date of : 1965 Referring Physician: No ref. provider found Chief Complaint: Chief Complaint Patient presents with 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 History of Present Illness: Georgia Watts is a 59 y.o. female who is here today for follow up on psoriatic arthritis with psoriasis. Story: She was diagnosed with psoriasis per dermatology. She was not able to tolerate leflunomide with reports of GI upset and hair loss. We previously prescribed her methotrexate. She reported she was having hair loss and GI upset so she stopped taking this. We also previously prescribed her Cosentyx. She reports she took a couple doses but did not see an improvement so she stopped taking it. She denies flares of her left episcleritis, which was one of her presenting symptoms. 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 However, she currently doesnot have any symptoms of MCTD other than inflammatory joint symptoms. She is no longer following with dermatology. She has had multiple surgeries for right carpal tunnel syndrome, left plantar fasciitis, right tennis elbow. Right elbow-- diagnosed with lateral epicondylitis. They went in and cleaned it out in 2003. Interim 04/11/2025: She feels the sulfasalazine helped slightly. She often forgets the evening dose She still notes joint pain and swelling in the hands, feet, knees. She also has back pain. Some psoriasis lesions arms and legs. She does feel the Skyrizi is starting to help. Less pain and stiffness in the hips and back. No side effects. History of Present Illness Subjective Review of Systems: Review of Systems Constitutional: Negative for chills, fatigue, fever and unexpected weight loss. HENT: Negative for mouth sores, sinus pressure and sore throat. Eyes: Negative for pain and redness. Respiratory: Negative for cough and shortness of breath. Cardiovascular: Negative for chest pain. Gastrointestinal: Negative for abdominal pain, blood in stool, diarrhea, nausea, vomiting and GERD. Endocrine: Negative for polydipsia and polyuria. Genitourinary: Negative for dysuria, genital sores and hematuria. Musculoskeletal: Positive for arthralgias and myalgias. Negative for back pain, joint swelling, neck pain and neck stiffness. Skin: Positive for rash. Negative for bruise. Neurological: Negative for seizures, weakness, numbness and memory problem. Hematological: Negative for adenopathy. Does not bruise/bleed easily. Psychiatric/Behavioral: Negative for depressed mood. The patient is not nervous/anxious. Past Medical History: Past Medical History: Diagnosis Date Arthritis Caffeine use Carpal tunnel syndrome Condition not found Big toe left bone scraping Depression GERD (gastroesophageal reflux disease) Hypertension Left tennis elbow Plantar fasciitis, left Past Surgical History: Past Surgical History: Procedure Laterality Date CARPAL TUNNEL RELEASE Right SECTION CHOLECYSTECTOMY PLANTAR FASCIA SURGERY TENNIS ELBOW RELEASE TONSILLECTOMY TUBAL ABDOMINAL LIGATION Family History: Family History Problem Relation Age of Onset Lung cancer Mother Hypertension Father Emphysema Father Lupus Sister Uterine cancer Sister COPD Brother Social History: Social History Socioeconomic History Marital status: Single Tobacco Use Smoking status: Never Smokeless tobacco: Never Vaping Use Vaping status: Never Used Substance and Sexual Activity Alcohol use: No Drug use: No Sexual activity: Defer Medications: Current Outpatient Medications: betamethasone dipropionate 0.05 % lotion, Apply topically to the appropriate area as directed 2 (Two) Times a Day., Disp: , Rfl: bisoprolol (ZEBeta) 5 MG tablet, Take 1 tablet by mouth Daily., Disp: , Rfl: buPROPion XL (WELLBUTRIN XL) 150 MG 24 hr tablet, Take 1 tablet by mouth Daily., Disp: , Rfl: furosemide (LASIX) 40 MG tablet, Take 1 tablet by mouth Daily., Disp: , Rfl: hydrALAZINE (APRESOLINE) 25 MG tablet, TAKE 1 TABLET BY MOUTH THREE TIMES DAILY NEEDED FOR HIGH BLOOD PRESSURE, Disp: , Rfl: hydrOXYzine (ATARAX) 25 MG tablet, Take 1 tablet by mouth Daily As Needed for Itching., Disp: 30 tablet, Rfl: 5 lisinopril (PRINIVIL,ZESTRIL) 20 MG tablet, Take 1 tablet by mouth Daily., Disp: , Rfl: Risankizumab-rzaa (Skyrizi Pen) 150 MG/ML solution auto-injector, Inject 150 mg under the skin intothe appropriate area as directed Every 12 (Twelve) Weeks., Disp: 1 mL, Rfl: 1 spironolactone (ALDACTONE) 50 MG tablet, Take 1 tablet by mouth Daily., Disp: , Rfl: sulfaSALAzine (AZULFIDINE) 500 MG tablet, Take 3 tablets by mouth 2 (Two) Times a Day., Disp: 540 tablet, Rfl: 1 Allergies: Allergies Allergen Reactions Codeine Nausea And Vomiting and GI Intolerance Objective Vital Signs: Vitals: 04/11/25 0918 BP: 124/76 BP Location: Left arm Patient Position: Sitting Cuff Size: Adult Pulse: 93 Resp: 16 Temp: 97.2 ??F (36.2 ??C) TempSrc: Temporal Weight: 102 kg (224 lb 12.8 oz) Height: 162.6 cm (64.02 ) PainSc: 6 PainLoc: Generalized Body mass index is 38.57 kg/m??. Physical Exam: Physical Exam MUSCULOSKELETAL: Unable to close fist completely. Scattered Heberden and Maryjo's nodes. Tender throughout the PIP joints bilateral hands. No synovitis. Complete joint exam was performed including the MCPs, PIPs, DIPs of the hands, wrists, elbows, shoulders, hips, knees and ankles. No soft tissue swelling or tenderness is present except as above. General: The patient is well-developed and well nourished. Cooperative, alert and oriented. Affect is normal. Hydration appears normal. HEENT: Normocephalic and atraumatic. Lids and conjunctiva are normal. Pupils are equal and sclera are clear. Oropharynx is clear NECK neck is supple without adenopathy, masses or thyromegaly. CARDIOVASCULAR: Regular rate and rhythm. No murmurs, rubs or gallops LUNGS: Effort is normal. Lungs are clear bilateral ABDOMEN: Not examined EXTREMITIES: Peripheral pulses are intact. No clubbing. SKIN: Scattered mild psoriasiform plaques. No subcutaneous nodules. No digital ulcers. No sclerodactyly. NEUROLOGIC: Gait is normal. Strength testing is normal. No focal neurologic deficits Results Review: Labs: Lab Results Component Value Date GLUCOSE 91 11/08/2024 BUN 23 11/08/2024 CREATININE 1.27 (H) 11/08/2024 EGFR 48.5 (L) 11/08/2024 BCR 18.1 11/08/2024 K 4.6 11/08/2024 CO2 26.6 11/08/2024 CALCIUM 9.6 11/08/2024 ALBUMIN 4.3 11/08/2024 BILITOT 0.5 11/08/2024 AST 15 11/08/2024 ALT 13 11/08/2024 Lab Results Component Value Date WBC 7.69 11/08/2024 HGB 13.3 11/08/2024 HCT 41.1 11/08/2024 MCV 92.2 11/08/2024 PLT 311 11/08/2024 Lab Results Component Value Date SEDRATE 30 11/08/2024 Lab Results Component Value Date CRP 0.39 11/08/2024 Lab Results Component Value Date QUANTIFERO Incubation performed. 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 She has had synovitis. Previous Rx: Plaquenil (flared psoriasis), MTX (hair loss/GI upset), Cosentyx, leflunomide (GI upset/hair loss), meloxicam (renal insufficiency) Current Rx: SSZ 07/08, skyrizi 12/07 X-ray (10/2021): without erosions or periarticular osteopenia. Low to moderate disease activity. Swollen joint count 0. Tender joint count 8 - She reports the Skyrizi is starting to help. She has had 3 doses so far. Give it more time. Continue Skyrizi - increase SSZ 1500 mg BID. She often forgets to take the evening dose. - Stopped further meloxicam due to renal insufficiency noted on labs - There has been uncertainty of what is going on with her heart, and with her + DEANGELO and HOSPICE SOCIAL WORKER, I do not want to complicate this by adding an anti-TNF - MCTD is still on the differential, however she has no features of connective tissue disease beyond an inflammatory arthritis. Per prior notes and reported cardiac evaluation, she does not have evidence of PAH or congestive heart failure - we will continue to treat for inflammatory arthritis in setting of psoriasis. - I emphasized the importance of monitoring labs today and every 4 months CBC CMP ESR CRP Labs ordered for monitoring as below Update hand x-rays today Bone density scan at return For intermittent muscle cramps of recommended urnc-sfx-woyscbc magnesium slow release 400 mg - RTC 4 months -Psoriasis Topical steroids as needed, biologic as above Bx proven psoriasis with dermatology Low disease activity -Immunosuppression due to medication -High risk medication use - Skyrizi, SSZ - CBC, CMP, ESR, CRP every 4 months - Hepatitis panel negative 02/2023 - QTB negative 02/23/24, update 04/11/2025 We discussed biologic agents at length. Risks and alternative were discussed at length and the option of no treatment was also given. We discussed risks including but not limited to infections which can be unusual, severe, and deadly. When possible, these agents should be stopped immediately if infections occur. Unusual infection such as TB and fungal infections can occur. There may be an increased risk of lymphoma with these agents. Other risks can include are multiple sclerosis like illness and worsening of the failure. Infusion or injection reactions whish can be delay have been reported. Reactivation of daily brain viruses have been reported. Worsening of COPD has been seen with Orencia. Elevated lipids, elevations in liver functions, and dangerous changes in blood counts have been seen with certain agents. Regular monitoring will be required. I discussed the side effects of sulfasalazine, including but not limited to rash, GI upset, photosensitivity, renal stones, hematologic and liver abnormalities - History of episcleritis Retina Dr. Persaud-- too mild to require treatment alone at this time. ANCAs have been negative No eye flares in interim 1. 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 2. MCFP (current) use of non-steroidal anti-inflammatories (nsaid) 3. High risk medication use 4. Vitamin D deficiency 5. Other fatigue Assessment & Plan Orders Placed This Encounter Procedures XR Hand 2 View Bilateral Comprehensive Metabolic Panel C-reactive Protein Sedimentation Rate CBC Auto Differential QuantiFERON-TB Gold Plus (Li-Hep) HLA-B27 Antigen Vitamin B12 Vitamin D,25-Hydroxy TSH Rheumatoid Factor Cyclic Citrul Peptide Antibody, IgG / IgA DEANGELO by IFA, Reflex 9-biomarkers profile UA / M With / Rflx Culture([facility] ONLY) - Urine, Clean Catch New Medications Ordered This Visit Medications Risankizumab-rzaa (Skyrizi Pen) 150 MG/ML solution auto-injector Sig: Inject 150 mg under the skin into the appropriate area as directed Every 12 (Twelve) Weeks. Dispense: 1 mL Refill: 1 sulfaSALAzine (AZULFIDINE) 500 MG tablet Sig: Take 3 tablets by mouth 2 (Two) Times a Day. Dispense: 540 tablet Refill: 1 Follow Up: Return in about 4 months (around 08/11/2025). Discussed plan of care in detail with the patient today. Patient verbalized understanding and agrees. I confirm accuracy of unchanged data/findings which have been carried forward from previous visit. I have updated appropriately those that have changed. Jay Azevedo MD [facility] [place] [facility] [place] documented in this encounter Plan of Treatment Upcoming Encounters Date Type Department Care Team (Late st Contact Info) Description 08/21/2025 9:15 AM EST Office Visit [facility] RHEUMATOLOGY [address] [phone] Nancy Braga APRN [address] [phone] Scheduled Orders Name Type Priority Associated Diagnoses Orde r Schedule Comprehensive Metabolic Panel Lab Routine 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 High risk medication use Ordered: 04/11/2025 C-reactive Protein Lab Routine 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 High risk medication use Ordered: 04/11/2025 Sedimentation Rate Lab Routine 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 High risk medication use Ordered: 04/11/2025 CBC Auto Differential Lab Routine 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 High risk medication use Ordered: 04/11/2025 QuantiFERON-TB Gold Plus (Li-Hep) Lab Routine 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 High risk medication use Ordered: 04/11/2025 HLA-B27 Antigen Lab Routine 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 High risk medication use Ordered: 04/11/2025 Vitamin B12 Lab Routine Other fatigue Ordered: 04/11/2025 Vitamin D,25-Hydroxy Lab Routine Vitamin D deficiency Other fatigue Ordered: 04/11/2025 TSH Lab Routine Other fatigue Ordered: 04/11/2025 Rheumatoid Factor Lab Routine 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 Ordered: 04/11/2025 Cyclic Citrul Peptide Antibody, IgG / IgA Lab Routine 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 Ordered: 04/11/2025 DEANGELO by IFA, Reflex 9-biomarkers profile Lab Routine 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 High risk medication use Ordered: 04/11/2025 UA / M With / Rflx Culture([facility] ONLY) - Urine, Clean Catch Lab Routine 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 High risk medication use Ordered: 04/11/2025 documented as of this encounter Procedures Procedure Name Priority Date/Time Associated Diagnosis Comments XR HAND 2 VW BILATERAL Routine 04/11/2025 10:06 AM EDT 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 documented in this encounter Results * XR Hand 2 View Bilateral (04/11/2025 10:06 AM EDT) Anatomical Region Laterality Modality Upper Extremities, Hand Bilateral Radiogra phic Imaging 04/17/2025 1:49 PM EDT Impressions 04/17/2025 1:50 PM EDT Impression: 1.No evidence of acute fracture or malalignment. 2.Mild degenerative changes of the interphalangeal joints and triscaphe joints. No evidence of erosive arthropathy. Electronically Signed: Bulmaro Medina MD 04/17/2025 1:50 PM EDT Workstation ID: [id number] Narrative 04/17/2025 1:50 PM EDT XR HAND 2 VW BILATERAL Date of Exam: 04/11/2025 10:04 AM EDT Indication: pain. Comparison: None available. Findings: No traumatic malalignment. Mild degenerative changes of the interphalangeal joints and triscaphe joints. No periarticular erosions. No evidence of fracture. Small amount of subchondral cystic change seen at the right third proximal interphalangeal joint. Procedure Note Bulmaro Medina MD - 04/17/2025 XR HAND 2 VW BILATERAL Date of Exam: 04/11/2025 10:04 AM EDT Indication: pain. Comparison: None available. Findings: No traumatic malalignment. Mild degenerative changes of theinterphalangeal joints and triscaphe joints. No periarticular erosions. Noevidence of fracture. Small amount of subchondral cystic change seen atthe right third proximal interphalangeal joint. IMPRESSION: Impression: 1.No evidence of acute fracture or malalignment. 2.Mild degenerative changes of the interphalangeal joints and triscaphejoints. No evidence of erosive arthropathy. Electronically Signed: Bulmaro Medina MD 04/17/2025 1:50 PM EDT Workstation ID: [id number] Jay Azevedo MD [facility] Final Result documented in this encounter Visit Diagnoses Diagnosis 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- Primary Psoriatic arthropathy MCFP (current) use of non-steroidal anti-inflammatories (nsaid) High risk medication use Vitamin D deficiency Other fatigue documented in this encounter Care Teams Dean Of Women Relationship Specialty Start Date End Date Manisha Barrera APRN [address] [place] [address] AARON MARIEE [id number] PCP - General Internal Medicine 02/23/24 documented as of this encounter
--- OUTSIDE RECORDS SUMMARY | 2025-04-11 10:15 | XMS_ITS | Encounter Summary ---
Author Organization [facility] Address [address] [place] [address] Care Team Providers Care Tape Recorder Mechanic Name Role Phone BruceManisha SIMON Primary Care Provider Encounter Details Date Type Department Care Team (Late st Contact Info) Description 04/11/2025 10:15 AM EDT Ancillary Procedure [facility] [address] [phone] Social History Tobacco Use Types [...] Description 08/21/2025 9:15 AM EST Office Visit [facility] [address] [place] [phone] Nancy Braga APRN [address] [address] documented as of this encounter [...] MD 04/17/2025 1:50 PM EDT Workstation ID: [id number] Narrative 04/17/2025 1:50 PM EDT XR HAND [...] MD 04/17/2025 1:50 PM EDT Workstation ID: [id number] Jay Azevedo MD IM DIAGNOSTIC IMAGING ORDDesiree VALLE Final Result documented in this encounter Visit Diagnoses Not on filedocumented in this encounter Care Teams Tape Recorder Mechanic Relationship Specialty Start Date End Date Manisha Barrera APRN [address] [address] [place] [address] PCP - General Internal Medicine 02/23/24 documented as of this encounter
--- OUTSIDE RECORDS SUMMARY | 2025-04-18 12:40 | XMS_ITS | Encounter Summary ---
Author Organization [facility] Address [address] [place] [address] Care Team Providers Care Cafeteria Associate Name Role Phone Manisha Barrera APRN Primary [...] Description 08/21/2025 9:15 AM EST Office Visit [facility] RHEUMATOLOGY [address] [place] [phone] Nancy Braga APRN [address] [facility] 100 [place] [address] documented as of this encounter Visit Diagnoses Not on filedocumented in this encounter Care Teams Cafeteria Associate Relationship Specialty Start Date End Date Manisha Barrera APRN 1210 [facility] [address] [place] [address] [place] [address] PCP - General Internal Medicine 02/23/24 documented as of this encounter
--- OUTSIDE RECORDS SUMMARY | 2025-04-18 12:40 | XMS_ITS ---
Author Organization [facility] Address [address] [place] [phone] Care Team Providers Care Conference Concierge Name Role Phone Manisha Barrera APRN Primary Care Provider [phone] Rheumatology - External Fill Status:Enrolled (Active) Start date:02/23/2024 Enrollment date:02/23/2024 Enrollment reason:Identified as being on target medication Current support & services provided:Benefits Investigation, External Pharmacy Dispensing Linked medications:Adalimumab (Patient Reported) Linked problems: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 (Active) Continued Care and Services Coordination
--- OUTSIDE RECORDS SUMMARY | 2025-04-18 12:40 | XMS_ITS | Clinical Summary ---
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 540 tablet 1 04/11/20 25 Active meloxicam (MOBIC) 7.5 MG tabletIndicatio ns: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,longterm (current) use of non-steroidal anti-inflammato christina (nsaid) Take 1 tablet by mouth Daily As Needed for Mild Pain. 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 Handout provided. longterm (current) use of n on-steroidal anti-inflammatories (nsaid) [...] EST): + psoriasis, + DEANGELO 1:160, + CLAMP OPERATOR 101. She has had synovitis. Previous [...] heart, and with her + DEANGELO and CLAMP OPERATOR, I do not want to complicate [...] EDT): + psoriasis, + DEANGELO 1:160, + CLAMP OPERATOR 101. She has had synovitis. Previous [...] heart, and with her + DEANGELO and CLAMP OPERATOR, I do not want to complicate [...] Encounters Date Type Department Care Team Description 04/17/2025 Results Follow-Up [facility] RHEUMATOLOGY [address] [place] [phone] Jay Azevedo MD 04/11/2025 10:15 AM EDT Ancillary Procedure [facility] RHEUMATOLOGY [address] [place] [phone] 04/11/2025 9:30 AM EDT Office Visit [facility] RHEUMATOLOGY [address] [place] [phone] Jay Azevedo MD 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 (Primary Dx); longterm (current) use of non-steroidal anti-inflammatories (nsaid); High risk medication use; Vitamin D deficiency; Other fatigue 04/11/2025 Travel 03/30/2025 Refill [facility] RHEUMATOLOGY [address] [place] [phone] Jay Azevedo MD 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; 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 100 [place] [address] Health Maintenance Due Date Last Done Comments [...] 04/08/2017 HEPATITIS C SCREENING 04/08/2017 COVID-19 Vaccine (1 - season) 2025 INFLUENZA VACCINE 05/15/2025 Procedures Procedure Name Priority Date/Time Associated Diagnosis Comments XR HAND 2 VW BILATERAL Routine 04/11/2025 10:06 AM EDT 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 from Last 3 Months Results * XR Hand 2 View Bilateral [...] MD 04/17/2025 1:50 PM EDT Workstation ID: [id number] Narrative 04/17/2025 1:50 PM EDT XR HAND [...] MD 04/17/2025 1:50 PM EDT Workstation ID: [id number] Jay Azevedo MD IMG DIAGNOSTIC IMAGING [place] Final Result from Last [address] [facility] [place] [id number] Care Teams Facility Operations Manager Relationship Specialty Start Date End Date Manisha Barrera APRN [address] [place] [address] [place] [address] PCP - General Internal Medicine 02/23/24
--- OUTSIDE RECORDS SUMMARY | 2025-04-18 12:40 | XMS_ITS | Encounter Summary ---
Author Organization [facility] Address [address] [place] [address] Care Team Providers Care Blind Aide Name Role Phone Manisha Barrera SIMON Primary Care Provider Encounter Details Date Type Department Care Team (Late st Contact Info) Description 11/08/2024 Results Follow-Up [facility] RHEUMATOLOGY [address] [address] Nancy Braga, PRINT CUTTER [address] [address] Social History Tobacco Use Types Packs/Day Years [...] Description 08/21/2025 9:15 AM EST Office Visit [facility] RHEUMATOLOGY [address] [address] Nancy Braga, PRINT CUTTER [address] [address] documented as of this encounter Visit Diagnoses Not on filedocumented in this encounter Care Teams Blind Aide Relationship Specialty Start Date End Date Manisha Barrera APRN [facility]0 [address] [facility]31 PCP - General Internal Medicine 02/23/24 documented as of this encounter
--- OUTSIDE RECORDS SUMMARY | 2025-04-18 12:40 | XMS_ITS | Encounter Summary ---
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 (nsaid) Social [...] Description 08/21/2025 9:15 AM EST Office Visit [facility]UMATOLOGY 330 [facility] 100 [place] [address] Nancy Braga APRN [address] [address] documented as of this encounter Visit Diagnoses Diagnosis 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 Psoriatic arthropathy 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
--- OUTSIDE RECORDS SUMMARY | 2025-04-18 12:40 | XMS_ITS | Encounter Summary ---
Author Organization [facility] Address [address] [place] [address] Care Team Providers Care Geography Department Chair Name Role Phone BruceManisha SIMON Primary Care Provider [phone] Encounter Details Date Type Department Care Team (Late Contact Info) Description 04/17/2025 Results Follow-Up [facility] RHEUMATOLOGY [address] [address] Jay Azevedo MD [address] [phone] Social History Tobacco Use Types Packs/Day Years [...] 9:15 AM EST Office Visit [facility]OLOG[facility] [address] [address] Nancy Braga APRN [address] [phone] documented as of this encounter Visit Diagnoses Not on filedocumented in this encounter Care Teams Geography Department Chair Relationship Specialty Start Date End Date Manisha Barrera APRN [facility] [place] [address] PCP - General Internal Medicine 02/23/24 documented as of this encounter
--- NOTE | 2025-04-18 12:49 | US_ITS ---
PROCEDURE: US TRANSVAGINAL CLINICAL INDICATION: pelvic pain COMPARISON: No exams were available for comparison FINDINGS: Transvaginal sonographic images of the pelvis were obtained. UTERUS: 7.5 cm x 4.7 cmx 3.6 cm with a combined endometrial thickness of 9.4mm. There appears to be a polyp in the endometrium that measures 1 cm in thickness. There is a small amount of fluid surrounding this. There are small cystic areas within the endometrium here There are multiple small nabothian cysts in the cervix. The largest measures 1.0 cm. A scar is present. There is an anterior fibroid measuring 1.0 cm x 1.2 cm x 0.9 cm There are small calcifications within the uterus. LEFT OVARY: 2.7 cmx1.5 cmx1.4cm with a volume of 2.9ml. There are small follicles in the left ovary. RIGHT OVARY: 1.8 cmx 1.5cmx0.9 cm with a volume of 1.3ml. Both ovaries are seen and appear normal. Doppler flow to both ovaries are seen. There is no fluid in the cul-de-sac. IMPRESSION: 1. Anteverted uterus normal in shape and size. The endometrium is thickened measuring 9.4 mm and there appears to be a polyp within the endometrial cavity. This polyp is surrounded by a small amount of fluid. Suggest endometrial sampling. 2. There is an anterior fibroid measuring 1.2 cm. Small calcifications within the myometrium. 3. Both ovaries are seen and appear normal. The left ovary has a small follicle. 4. No fluid in the cul-de-sac. Dictated by: Arsh Matos MD 04/19/2025 07:25 Arsh Matos MD in OV 04/19/2025 07:25
== END 2025-04-18 23:59 | disposition home or self-care (01) ==
LOC: RAD 12:39
PROVIDERS: PCP Nurse Practitioner Family; Visit Provider Nurse Practitioner Family
DX: N85.4 Malposition of uterus (principal); D25.9 Leiomyoma of uterus, unspecified; N83.02 Follicular cyst of left ovary; N85.8 Other specified noninflammatory disorders of uterus; R93.89 Abnormal findings on diagnostic imaging of other specified body structures
CPT/HCPCS: 76830

== ENCOUNTER 2025-04-22 14:41 | Outpatient (CLI) | payer OTHER, SELFPAY ==
--- OUTSIDE RECORDS SUMMARY | 2025-04-11 09:30 | XMS_ITS | Encounter Summary ---
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 How is this treated? The goal of [...] a PsA support group. General instructions Take pmuy-ekm-eofaqkh and prescription medicines only as told by [...] Foundation: www.psoriasis.org Where to find more information [place] [employer]: www.aad.org [place] [employer]: www.rheumatology.org Contact a health [...] the National Suicide Prevention Lifeline at or 384. This is open 24 hours a day. Text the Crisis Text Line at 956136. Summary 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, or PsA, is a [...] provider. Document Revised: 09/20/2022 Document Reviewed: 09/20/2022 [employer] Patient Education ?? 2023 [employer]. Sulfasalazine Tablets What is this medication? SULFASALAZINE [...] these conditions: Asthma Blood disorders or anemia Liomxgw-0-lzulfwdjv dehydrogenase (G6PD) deficiency Intestinal obstruction Kidney disease [...] may report side effects to FDA at 6-648-XBM-6135. Where should I keep my medication? Keep [...] sent through Care Everywhere. * Risankizumab Injection ([place]) documented in this encounter Progress Notes * [...] have a + DEANGELO 1:160 and + PROJECT ARCHIVIST 101, so MCTD has been considered. However, [...] Mcrae + psoriasis, + DEANGELO 1:160, + PROJECT ARCHIVIST 101. She has had synovitis. Previous Rx: [...] heart, and with her + DEANGELO and PROJECT ARCHIVIST, I do not want to complicate this [...] return For intermittent muscle cramps of recommended icrc-atj-tlysbxq magnesium slow release 400 mg - RTC [...] flares in interim 1. 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 2. senior living (current) use of non-steroidal anti-inflammatories (nsaid) 3. [...] those that have changed. Jay Azevedo MD [facility] [place] [facility] [place] documented in this encounter Plan of Treatment Upcoming Encounters Date Type Department Care Team (Late st Contact Info) Description 08/21/2025 9:15 AM EST Office Visit [facility] RHEUMATOLOGY [address] [phone] Nancy Braga APRN [address] [phone] Scheduled Orders Name Type Priority Associated Diagnoses [...] MD 04/17/2025 1:50 PM EDT Workstation ID: [id number] Narrative 04/17/2025 1:50 PM EDT XR HAND [...] MD 04/17/2025 1:50 PM EDT Workstation ID: [id number] Jay Azevedo MD [facility] Final Result documented in this encounter Visit Diagnoses Diagnosis 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- Primary Psoriatic arthropathy senior living (current) use of non-steroidal anti-inflammatories (nsaid) High risk medication use Vitamin D deficiency Other fatigue documented in this encounter Care Teams Investigations Chief Relationship Specialty Start Date End Date Manisha Barrera APRN [address] [place] [address] A[place]ON MARIEE [address] PCP - General Internal Medicine 02/23/24 documented as of this encounter
--- OUTSIDE RECORDS SUMMARY | 2025-04-11 10:15 | XMS_ITS | Encounter Summary ---
Author Organization [facility] Address [address] [place] [address] Care Team Providers Care Forestry Aid Name Role Phone BruceManisha SIMON Primary Care Provider Encounter Details Date Type Department Care Team (Late st Contact Info) Description 04/11/2025 10:15 AM EDT Ancillary Procedure [facility] [address] [phone] Social History Tobacco Use Types [...] Description 08/21/2025 9:15 AM EST Office Visit [facility] [address] [place] [phone] Nancy Braga APRN [address] [address] documented as of this encounter [...] MD 04/17/2025 1:50 PM EDT Workstation ID: [id number] Narrative 04/17/2025 1:50 PM EDT XR HAND [...] MD 04/17/2025 1:50 PM EDT Workstation ID: [id number] Jay Azevedo MD IM DIAGNOSTIC IMAGING ORDDesiree VALLE Final Result documented in this encounter Visit Diagnoses Not on filedocumented in this encounter Care Teams Forestry Aid Relationship Specialty Start Date End Date Manisha Barrera APRN [address] [address] [place] [address] PCP - General Internal Medicine 02/23/24 documented as of this encounter
--- OUTSIDE RECORDS SUMMARY | 2025-04-22 14:43 | XMS_ITS | Encounter Summary ---
Author Organization [facility] Address [address] [place] [address] Care Team Providers Care Machine I Engraver Name Role Phone Manisha Brarera SIMON Primary Care Provider Encounter Details Date Type Department Care Team (Late st Contact Info) Description 11/08/2024 Results Follow-Up [facility] RHEUMATOLOGY [address] [address] Nancy Braga, DRAWING KILN SUPERVISOR [address] [address] Social History Tobacco Use Types Packs/Day Years [...] EST Office Visit [facility] RHEUMATOLOGY [address] [address] Nancy Braga, DRAWING KILN SUPERVISOR [address] [address] documented as of this encounter Visit Diagnoses Not on filedocumented in this encounter Care Teams Machine I Engraver Relationship Specialty Start Date End Date Mainsha Barrera APRN [facility] [address] [facility]31 PCP - General Internal Medicine 02/23/24 documented as of this encounter
--- OUTSIDE RECORDS SUMMARY | 2025-04-22 14:43 | XMS_ITS ---
Author Organization [facility] Address [address] [place] [phone] Care Team Providers Care Organic Chemistry Professor Name Role Phone Manisha Barrera APRN Primary Care Provider Rheumatology - External Fill Status:Enrolled (Active) Start date:02/23/2024 Enrollment date:02/23/2024 Enrollment reason:Identified as being on target medication Current support & services provided:Benefits Investigation, External Pharmacy Dispensing Linked medications:Adalimumab (Patient Reported) Linked problems: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 (Active) Continued Care and Services Coordination
--- OUTSIDE RECORDS SUMMARY | 2025-04-22 14:43 | XMS_ITS | Patient Health Record ---
Author Organization [facility] Address [address] [facility] 300 [place] [address] Care Team Providers Care Historian Dramatic Arts Name Role Phone Fely Lopez [phone] Allergies Allergen (clinical drug ingredient) Drug/Non Drug Allergy documented on EMR Reaction Allergy Type Onset Date Status CODEINE PHOSPHATE (CODEINE PHOSPHATE SOLN) Unspecified Drug Allergy 11/21/2012 Active Reason For Referral No Information Problems Problem Type SNOMED Code ICD Code Onset Dates Problem Status W/U Status Risk Notes Problem Gynecological examination normal (38414449630235 4) Cervical smear, as part of routine gynecological examination (Z01.419) 016 Active confirmed Annual without abnormal findings Problem Breakthrough bleeding (57942797) Breakthrough bleeding (N92.1) 013 Active confirmed [place]ROR[place]AG[place] [...]
--- OUTSIDE RECORDS SUMMARY | 2025-04-22 14:43 | XMS_ITS | Encounter Summary ---
Author Organization [facility] Address [address] [place] [address] Care Team Providers Care Coat Maker Name Role Phone Manisha Barrera APRN Primary [...] Description 08/21/2025 9:15 AM EST Office Visit [facility] RHEUMATOLOGY [address] [place] [phone] Nancy Braga APRN [address] [facility] 100 [place] [address] documented as of this encounter Visit Diagnoses Not on filedocumented in this encounter Care Teams Coat Maker Relationship Specialty Start Date End Date Manisha Barrera APRN 1210 [facility] [address] [place] [address] [facility] [place] [address] PCP - General Internal Medicine 02/23/24 documented as of this encounter
--- OUTSIDE RECORDS SUMMARY | 2025-04-22 14:43 | XMS_ITS | Clinical Summary ---
Author Organization [facility] Address [address] [place] [address] Care Team Providers Care Games Dealer Name Role Phone Manisha Barrera APRN Primary [...] Active hydrOXYzine (ATARAX) 25 MG tabletIndicatio ns: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,superintendent terminal (current) use of non-steroidal anti-inflammato christina (nsaid) [...] Active sulfaSALAzine (AZULFIDINE) 500 MG tabletIndicatio ns: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,FCI (current) use of non-steroidal anti-inflammato christina (nsaid) Take 3 tablets by mouth 2 (Two) Times a Day. 540 tablet 1 04/11/20 25 Active meloxicam (MOBIC) 7.5 MG tabletIndicatio ns: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,FCI (current) use of non-steroidal anti-inflammato christina (nsaid) Take 1 tablet by mouth Daily As Needed for Mild Pain. 30 tablet 5 11/09/19 25 2024 Discontinued sulfaSALAzine (AZULFIDINE) 500 MG tabletIndicatio ns: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,superintendent terminal (current) use of non-steroidal anti-inflammato christina (nsaid) [...] Discontinued sulfaSALAzine (AZULFIDINE) 500 MG tabletIndicatio ns: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,superintendent terminal (current) use of non-steroidal anti-inflammato christina (nsaid) [...] were discussed with the patient. Handout provided. FCI (current) use of n on-steroidal anti-inflammatories (nsaid) [...] EST): + psoriasis, + DEANGELO 1:160, + PROFESSOR OF PHYSICAL EDUCATION 101. She has had synovitis. Previous Rx: [...] heart, and with her + DEANGELO and PROFESSOR OF PHYSICAL EDUCATION, I do not want to complicate this [...] EDT): + psoriasis, + DEANGELO 1:160, + PROFESSOR OF PHYSICAL EDUCATION 101. She has had synovitis. Previous Rx: [...] heart, and with her + DEANGELO and PROFESSOR OF PHYSICAL EDUCATION, I do not want to complicate this [...] Department Care Team Description 04/17/2025 Results Follow-Up [facility] RHEUMATOLOGY [address] [place] [phone] Jay Azevedo MD 04/11/2025 10:15 AM EDT Ancillary Procedure [facility] RHEUMATOLOGY [address] [place] [phone] 04/11/2025 9:30 AM EDT Office Visit [facility] RHEUMATOLOGY [address] [place] [phone] Jay Azevedo MD 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 (Primary Dx); FCI (current) use of non-steroidal anti-inflammatories (nsaid); High risk medication use; Vitamin D deficiency; Other fatigue 04/11/2025 Travel 03/30/[address] [facility] RHEUMATOLOGY [address] [place] [phone] Jay Azevedo MD 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; superintendent terminal (current) use of non-steroidal anti-inflammatories (nsaid) from [...] AM EST Office Visit [facility] RHEUMATOLOGY [address] [phone] Nancy Braga, METER CHANGES RECORDS CLERK [address] [facility] 100 [place] [address] Health Maintenance Due Date Last Done Comments [...] MD 04/17/2025 1:50 PM EDT Workstation ID: [id number] Narrative 04/17/2025 1:50 PM EDT XR HAND [...] MD 04/17/2025 1:50 PM EDT Workstation ID: [id number] Jay Azevedo MD IMG DIAGNOSTIC IMAGING [place] Final Result from Last 3 Months Insurance [facility] [place] [id number] Care Teams Games Dealer Relationship Specialty Start Date End Date Manisha Barrera APRN [address] [place] [address] [place] [address] PCP - General Internal Medicine 02/23/24
--- OUTSIDE RECORDS SUMMARY | 2025-04-22 14:43 | XMS_ITS | Encounter Summary ---
Author Organization [facility] Address [address] [place] [address] Care Team Providers Care Mixing Machine Operator Name Role Phone BruceManisha SIMON Primary Care Provider [phone] Encounter Details Date Type Department Care Team (Late Contact Info) Description 04/17/2025 Results Follow-Up [facility] RHEUMATOLOGY [address] [address] Jay Azevedo MD [address] [phone] Social History Tobacco Use Types Packs/Day Years [...] Description 08/21/2025 9:15 AM EST Office Visit [facility] RHEUMATOLOGY [address] [address] Nancy Braga APRN [address] [address] documented as of this encounter Visit Diagnoses Not on filedocumented in this encounter Care Teams Mixing Machine Operator Relationship Specialty Start Date End Date Manisha Barrera APRN [facility] [place] [address] PCP - General Internal Medicine 02/23/24 documented as of this encounter
--- OUTSIDE RECORDS SUMMARY | 2025-04-22 14:43 | XMS_ITS | Encounter Summary ---
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
--- NOTE | 2025-04-22 15:00 | US_ITS ---
FINAL REPORT TECHNIQUE: Sonographic images of the kidneys and retroperitoneum were obtained in the longitudinal and transverse planes. CLINICAL HISTORY: CKD FINDINGS: The right kidney measures 9.4 cm in [id number] length. No hydronephrosis, mass, or stone. Cortical echogenicity and thickness are normal. The left kidney measures 10.9 cm in drsm-ja-[id number] length. No hydronephrosis, mass, or stone. Cortical echogenicity and thickness are normal. Limited evaluation of the spleen and liver demonstrate no acute abnormality. IMPRESSION: Morphologically normal kidneys bilaterally. Reviewed, Interpreted and Dictated by Kayla Smith MD Transcribed by [employer] Authenticated and [facility]
--- NOTE | 2025-04-22 15:30 | US_ITS ---
FINAL REPORT CLINICAL HISTORY: CKD FINDINGS: Sonographic images of the urinary bladder were obtained. No filling defects are identified. The bladder filled measures 298 cc. Bilateral ureteral jets are identified. Patient empties to comfort. There is a very small residual of 14 cc. IMPRESSION: Very small postvoid residual. Reviewed, Interpreted and Dictated by Kayla Smith MD Transcribed by Naty Friend Authenticated and [facility]
== END 2025-04-22 23:59 | disposition home or self-care (01) ==
LOC: RAD 14:41
PROVIDERS: PCP Nurse Practitioner Family; Visit Provider Nurse Practitioner Family
DX: N18.4 Chronic kidney disease, stage 4 (severe) (principal); R39.198 Other difficulties with micturition
CPT/HCPCS: 76770; 76857

== ENCOUNTER 2025-05-19 10:36 | Outpatient (CLI) | payer OTHER, SELFPAY ==
--- OUTSIDE RECORDS SUMMARY | 2025-04-11 09:30 | XMS_ITS | Encounter Summary ---
Author Organization 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 How is this treated? The goal of [...] a PsA support group. General instructions Take nyod-iae-dvmdeib and prescription medicines only as told by [...] Foundation: www.psoriasis.org Where to find more information [place] [employer]: www.aad.org [place] [employer]: www.rheumatology.org Contact a health [...] the National Suicide Prevention Lifeline at or 369. This is open 24 hours a day. Text the Crisis Text Line at 189793. Summary 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, or PsA, is a [...] provider. Document Revised: 09/20/2022 Document Reviewed: 09/20/2022 [employer] Patient Education ?? 2023 [employer]. Sulfasalazine Tablets What is this medication? SULFASALAZINE [...] these conditions: Asthma Blood disorders or anemia Mcacgnv-5-ozmnolbbf dehydrogenase (G6PD) deficiency Intestinal obstruction Kidney disease [...] may report side effects to FDA at [phone]-[phone]. Where should I keep my medication? Keep [...] sent through Care Everywhere. * Risankizumab Injection (Macanese) documented in this encounter Progress Notes * [...] have a + DEANGELO 1:160 and + FARMWORKER LIVESTOCK 101, so MCTD has been considered. However, [...] Mcrae + psoriasis, + DEANGELO 1:160, + FARMWORKER LIVESTOCK 101. She has had synovitis. Previous Rx: [...] heart, and with her + DEANGELO and FARMWORKER LIVESTOCK, I do not want to complicate this [...] return For intermittent muscle cramps of recommended ojkg-hcr-ksejsol magnesium slow release 400 mg - RTC [...] flares in interim 1. 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 [...] [facility] [place] documented in this encounter Plan of Treatment Upcoming Encounters Date Type Department Care Team (Late st Contact Info) Description 08/21/2025 9:15 AM EST Office Visit [facility] RHEUM[facility]OLOG[facility] [address] [phone] Nancy Braga APRN [address] [address] Scheduled Orders Name Type Priority Associated Diagnoses Orde r Schedule CBC Auto Differential Lab Routine 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 [...] Procedure Name Priority Date/Time Associated Diagnosis Comments DEANGELO BY IFA, REFLEX 9-BIOMARKERS PROFILE Routine 04/11/2025 10:16 AM EDT QUANTIFERON-TB GOLD PLUS Routine 04/11/2025 10:16 AM EDT QUANTIFERON-TB GOLD PLUS (LI-HEP) Routine 04/11/2025 10:16 AM EDT 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 High risk medication use UA/M W/RFLX CULTURE ([facility] ONLY) Routine 04/11/2025 10:16 AM EDT ~MICROSCOPIC EXAMINATION Routine 04/11/2025 10:16 AM EDT RHEUMATOID FACTOR, QUANT Routine 04/11/2025 10:16 AM EDT HLA-B27 ANTIGEN Routine 04/11/2025 10:16 AM EDT 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 High risk medication use CYCLIC CITRUL PEPTIDE ANTIBODY, IGG/IGA Routine 04/11/2025 10:16 AM EDT VITAMIN D,25-HYDROXY Routine 04/11/2025 10:16 AM EDT SEDIMENTATION RATE Routine 04/11/2025 10 :16 AM EDT 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 High risk medication use CBC AND DIFFERENTIAL Routine 04/11/2025 10:16 AM EDT C-REACTIVE PROTEIN Routine 04/11/2025 10 :16 AM EDT 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 High risk medication use TSH Routine 04/11/2025 10:16 AM EDT VITAMIN B12 Routine 04/11/2025 10:16 AM EDT COMPREHENSIVE METABOLIC PANEL Routine 04/11/2025 10:16 AM EDT 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 High risk medication use XR HAND 2 VW BILATERAL Routine 10:06 AM EDT 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 documented in this encounter Results * (ABNORMAL) Vitamin B12 (04/11/2025 10:16 AM EDT) Vitamin B-12 1,259(H) 232 - 1,245 pg/mL [facility] 04/11/2025 10:1 6 AM EDT 04/11/2025 Narrative [facility] (AMBULATORY) - 2025 1:07 PM EDT Performed at: [address] [id number] Feller Buncher Operator: Gary Zendejas PhD, Phone: [phone] Patient Fasting: Y Jay Azevedo MD LAB BLOOD ORDERABLES Final Result [facility] [address] [place] [address], [facility] [address] [place] [address], * Cyclic Citrul Peptide Antibody, IgG / IgA (04/11/2025 10:16 AM EDT) CCP Antibodies IgG/IgA 3 0 - 19 units [facility] Comment: Negative <20 Weak positive 20 - 39 Moderate positive 40 - 59 Strong positive >59 04/11/2025 10:1 6 AM EDT 04/11/2025 [facility]ative [facility] - 2025 1:07 PM EDT Performed at: 01 - [facility] [address] [place] [id number] Feller Buncher Operator: Gary Zendejas PhD, Phone: [phone] Patient Fasting: Y Jay Azevedo MD LAB BLOOD ORDERABLES Final Result Performing Organization Address [facility] Co de Phone Number [facility] (AMBULATORY) [address] [place] [address], [facility] [address] [place] [address], * Vitamin D,25-Hydroxy (04/11/2025 10:16 AM EDT) 25 Hydroxy, Vitamin D 37.8 30.0 - 100.0 ng/mL [facility] Comment: Vitamin D deficiency has been defined by the [place] of Medicine and an Endocrine Society practice guideline as a level of serum 25-OH vitamin D less than 20 ng/mL (1,2). The Endocrine Society went on to further define vitamin D insufficiency as a level between 21 and 29 ng/mL (2). 1. IOM ([place] of Medicine). 2010. Dietary reference intakes for calcium and D. [place]: The National Academies Press. 2. Tracey MF, Vinay NC, Vivienne RODRIGUEZ, et al. Evaluation, treatment, and prevention of vitamin D deficiency: an Endocrine Society clinical practice guideline. JCEM. 2010; 96(7):1911-30. 04/11/2025 10:1 6 AM EDT 04/11/2025 Narrative [facility] (AMB[facility]ORY) - 2025 1:07 PM EDT Performed at: [address] [place] [address] [place] [id number] Feller Buncher Operator: Gary Zendejas PhD, Phone: [phone] Patient Fasting: Y us Jay Azevedo MD LAB BLOOD ORDERABLES Final Result Performing Organization Address [facility] Co de Phone Number [facility] (AMBULATORY) [address] [place] [address], [facility] [address] [place] [address], * Rheumatoid Factor (04/11/2025 10:16 AM EDT) RA Latex Turbid <10.0 <14.0 IU/mL [facility] 04/11/2025 10:1 6 AM EDT 04/11/2025 Narrative [facility] ([facility]ORY) - 2025 1:07 PM EDT Performed at: [address] [place] [address] [place] [id number] Feller Buncher Operator: Gary Zendejas PhD, Phone: [phone] Patient Fasting: Y us Jay Azevedo MD LAB BLOOD ORDERABLES Final Result Performing Organization Address City/[facility]/ZIP Co de Phone Number [facility] (AMBULATORY) [address] [place] [address], [facility] [address] [place] [address], * TSH (04/11/2025 10:16 AM EDT) TSH 3.750 0.450 - 4.500 uIU/mL [facility] 04/11/2025 10:1 6 AM EDT 04/11/2025 Narrative [facility] (AMBULATORY) - 2025 1:07 PM EDT Performed at: 01 - [facility] [address] [place] [id number] Feller Buncher Operator: Gary Zendejas PhD, Phone: [phone] Patient Fasting: Y us Jay Azevedo MD LAB BLOOD ORDERABLES Final Result Performing Organization Address City/[facility]/ZIP Co de Phone Number [facility] [address] [place] [address], [place] [phone] [facility] [address] [place] [address], [place] [phone] * DEANGELO by IFA, Reflex 9-biomarkers profile (04/11/2025 10:16 AM EDT) DEANGELO Negative [facility] Comment: Negative <1:80 Borderline 1:80 Positive >1:80 ICAP nomenclature: AC-0 For more information about Hep-2 cell patterns use ANApatterns.org, the official website for the International Consensus on Antinuclear Antibody (DEANGELO) Patterns (ICAP). Please note Comment [facility] Comment: DEANGELO Multiplex methodology was designed to detect up to 11 antibodies of the 100+ antibodies that may be detected by DEANGELO IFA methodology. 04/11/2025 10:1 6 AM EDT 04/11/2025 [facility] (AMBULATORY) - 2025 1:07 PM EDT Performed at: - [address] [id number] Feller Buncher Operator: Gary Zendejas PhD, Phone: [phone] Patient Fasting: Y us Jay Azevedo MD LAB BLOOD ORDERABLES Final Result Performing Organization Address City/[facility]/ZIP Co de Phone Number [facility] [address] [place] [address], [place] [phone] [facility] [address] [place] [address], [place] [phone] * QuantiFERON-TB Gold Plus (04/11/2025 10:16 AM EDT) Pathologist [facility] QuantiFERON Criteria Comment [facility] Comment: QuantiFERON-TB Gold Plus is a qualitative indirect test for M tuberculosis infection (including disease) and is intended for use in conjunction with risk assessment, radiography, and other medical and diagnostic evaluations. The QuantiFERON-TB Gold Plus result is determined by subtracting the Nil value from either TB antigen (Ag) value. The Mitogen tube serves as a control for the test. QUANTIFERON TB1 AG VALUE 0.02 IU/mL [facility] QUANTIFERON TB2 AG VALUE 0.02 IU/mL [facility] QuantiFERON Nil Value 0.02 IU/mL [facility] QuantiFERON Mitogen Value 1.45 IU/mL [facility] 04/11/2025 10:1 6 AM EDT 04/11/2025 [facility] (AMBULATORY) - 2025 1:07 PM EDT Performed at: [address] [place] [id number] Feller Buncher Operator: Gary Zendejas PhD, Phone: [phone] Patient Fasting: Y Jay Azevedo MD LAB BLOOD ORDERABLES Final Result [facility] [address] [place], [place] [id number], [facility] [address] [place] [address], * Microscopic Examination - (04/11/2025 10:16 AM EDT) Pathologist [facility] [place] WBC, UA None seen 0 - 5 /hpf [facility] RBC, UA None seen 0 - 2 /hpf [facility] Epithelial Cells (non renal) 0-10 0 - 10 /hpf [facility] Casts None seen None seen /lpf [facility] Bacteria, UA None seen None seen/Few [facility] 04/11/2025 10:1 6 AM EDT 04/11/2025 [facility] (AMBULATORY) - 2025 1:07 PM EDT Performed at: - [facility] [address] [id number] Feller Buncher Operator: Gary Zendejas PhD, Phone: [phone] Patient Fasting: Y us Jay Azevedo MD URINE ORDERABLES Final Resu lt [facility] (AMBULATORY) [address] [place] [address], [place] [phone] [facility] [address] [place] [address], * UA / M With / Rflx Culture([facility] ONLY) - (04/11/2025 10:16 AM EDT) Pathologist [facility] [place] Specific [place], UA 1.010 1.005 - 1.030 [facility] pH, UA 6.0 5.0 - 7.5 [facility] Color, UA Yellow Yellow [facility] Appearance, UA Clear Clear [facility] Leukocytes, UA Negative Negative [facility] Protein Negative Negative/Tra ce [facility] Glucose, UA Negative Negative [facility] Ketones Negative Negative [facility] Blood, UA Negative Negative [facility] Bilirubin, UA Negative Negative [facility] Urobilinogen, UA 0.2 0.2 - 1.0 mg/dL [facility] Nitrite, UA Negative Negative [facility] Microscopic Examination Comment [facility] Comment:Microscopic follows if indicated. Microscopic Examination See below: [facility] Comment:Microscopic was elaina cated and was performed. Urinalysis Reflex Comment [facility] Comment:This specimen will n ot reflex to a Urine Culture. 04/11/2025 10:1 6 AM EDT 04/11/2025 Narrative [facility] ([facility]ORY) - 2025 1:07 PM EDT Performed at: - [facility] [address] [id number] Feller Buncher Operator: Gary Zendejas PhD, Phone: [phone] Patient Fasting: Y us Jay Azevedo MD URINE ORDERABLES Final Resu lt [facility] (AMBULATORY) [address] [place] [address], [facility] [address] [place] [address], * (ABNORMAL) CBC & Differential (04/11/2025 10:16 AM EDT) [facility] Signature WBC 14.2(H) 3.4 - 10.8 x10E3/uL [facility] RBC 4.03 3.77 - 5.28 x10E6/uL [facility] Hemoglobin 12.4 11.1 - 15.9 g/dL [facility] Hematocrit 38.9 34.0 - 46.6 % [facility] MCV 97 79 - 97 fL [facility] MCH 30.8 26.6 - 33.0 pg [facility] MCHC 31.9 31.5 - 35.7 g/dL [facility] RDW 11.9 11.7 - 15.4 % [facility] Platelets 331 150 - 450 x10E3/uL [facility] Neutrophil Rel % 76 Not Estab. % [facility] Lymphocyte Rel % 14 Not Estab. % [facility] Monocyte Rel % 8 Not Estab. % [facility] Eosinophil Rel % 1 Not Estab. % [facility] Basophil Rel % 0 Not Estab. % [facility] Neutrophils Absolute 10.8(H) 1.4 - 7.0 x10E3/uL [facility] Lymphocytes Absolute 2.0 0.7 - 3.1 x10E3/uL [facility] Monocytes Absolute 1.1(H) 0.1 - 0.9 x10E3/uL [facility] Eosinophils Absolute 0.2 0.0 - 0.4 x10E3/uL [facility] Basophils Absolute 0.1 0.0 - 0.2 x10E3/uL [facility] Immature Granulocyte Rel % 1 Not Estab. % [facility] Immature Grans Absolute 0.1 0.0 - 0.1 x10E3/uL [facility] 04/11/2025 10:1 6 AM EDT 04/11/2025 [facility] (AMBUL[facility]ORY) - 2025 1:07 PM EDT Performed at: 01 - [facility] [address] [place], [place] [id number] Feller Buncher Operator: Gary Zendejas PhD, Phone: [phone] Patient Fasting: Y us Jay Azevedo MD LAB BLOOD ORDERABLES Final Result Performing Organization Address [facility]/ZIP Co de Phone Number [facility] (AMBULATORY) [address] [place] [address], [facility] [address] [place] [address], * HLA-B27 Antigen (04/11/2025 10:16 AM EDT) [facility] HLA B27 Negative [facility] Comment: HLA-B*27 Negative B27 allele interpretation for all loci based on IMGT/HLA database version 3.58 This test was developed and its performance characteristics determined by [facility]. It has not been cleared or approved by the Food and Drug Administration. The FDA has determined that such clearance or approval is not necessary. [facility] CLIA ID Number [id number] HISTOCOMPATIBILITY SECTION DIRECTOR: Balbir Castillo, PhD, F([facility] This test was performed using Polymerase Chain Reaction (PCR) and Sequence Specific Oligonucleotide Probes (SSOP) technique. Sequence Based Typing (SBT) may be used as a supplemental method when necessary. If you have questions, please call HLA customer service at or email at [email or web address] Blood 04/11/2025 10:1 6 AM EDT 04/11/2025 Narrative [facility] (AMBULATORY) - 2025 1:07 PM EDT Performed at: - [address] [id number] Feller Buncher Operator: Duyen Chu PhD, Phone: [phone] Patient Fasting: Y us Jay Azevedo MD LAB BLOOD ORDERABLES Final Result Performing Organization Address [facility]/ZIP Co de Phone Number [facility] (AMBULATORY) [address] [place] [address], [facility] [address] [place] [address], * QuantiFERON-TB Gold Plus (Li-Hep) (04/11/2025 10:16 AM EDT) Pathologist [facility] [place] QuantiFERON Incubation Incubation performed. [facility] QUANTIFERON-TB GOLD PLUS Negative Negative [facility] Comment: No response to M tuberculosis antigens detected. Infection with M tuberculosis is unlikely, but high risk individuals should be considered for additional testing (ATS/IDSA/CDC Clinical Practice Guidelines, 2017). The reference range is an Antigen minus Nil result of <0.35 IU/mL. Chemiluminescence immunoassay methodology Blood 04/11/2025 10:1 6 AM EDT 04/11/2025 Narrative [facility] ([facility]) - 2025 1:07 PM EDT Performed at: [address] [place] [id number] Feller Buncher Operator: Gary Zendejas PhD, Phone: [phone] Patient Fasting: Y us Jay Azevedo MD LAB BLOOD ORDERABLES Final Result Performing Organization Address City/[facility]/ZIP Co de Phone Number [facility] (AMBULATORY) [address] [place] [address], [facility] [address] [place] [address], * Sedimentation Rate (04/11/2025 10:16 AM EDT) Pathologist [facility] Sed Rate 37 0 - 40 mm/hr [facility] Blood 04/11/2025 10:1 6 AM EDT 04/11/2025 Narrative [facility] ([facility]) - 2025 1:07 PM EDT Performed at: [address] [place] [id number] Feller Buncher Operator: Gary Zendejas PhD, Phone: [phone] Patient Fasting: Y us Jay Azevedo MD LAB BLOOD ORDERABLES Final Result Performing Organization Address City/[facility]/ZIP Co de Phone Number [facility] (AMBULATORY) [address] [place] [address], [facility] [address] [place] [address], * (ABNORMAL) C-reactive Protein (04/11/2025 10:16 AM EDT) [facility] C-Reactive Protein 37(H) 0 - 10 mg/L [facility] Blood 04/11/2025 10:1 6 AM EDT 04/11/2025 Narrative [facility] (AMBULATORY) - 2025 1:07 PM EDT Performed at: 01 - [address] [id number] Feller Buncher Operator: Gary Zendejas PhD, Phone: [phone] Patient Fasting: Y Jay Azevedo MD LAB BLOOD ORDERABLES Final Result [facility] (AMBULATORY) [address] [place] [address], [facility] [address] [place] [address], * (ABNORMAL) Comprehensive Metabolic Panel (04/11/2025 10:16 AM EDT) [facility] Glucose 92 70 - 99 mg/dL [facility] BUN 18 8 - 27 mg/dL [facility] Creatinine 1.29(H) 0.57 - 1.00 mg/dL [facility] EGFR Result 48(L) >59 mL/min/1.7 3 [facility] BUN/Creatinine Ratio 14 12 - 28 [facility] Sodium 140 134 - 144 mmol/L [facility] Potassium 4.5 3.5 - 5.2 mmol/L [facility] Chloride 99 96 - 106 mmol/L [facility] Total CO2 24 20 - 29 mmol/L [facility] Calcium 10.0 8.7 - 10.3 mg/dL [facility] Total Protein 7.2 6.0 - 8.5 g/dL [facility] Albumin 4.7 3.8 - 4.9 g/dL [facility] Globulin 2.5 1.5 - 4.5 g/dL [facility] Total Bilirubin 0.7 0.0 - 1.2 mg/dL [facility] Alkaline Phosphatase 92 44 - 121 IU/L [facility] Comment:Please note refere nce interval change AST (SGOT) 13 0 - 40 IU/L [facility] ALT (SGPT) 12 0 - 32 IU/L [facility] Blood 04/11/2025 10:1 6 AM EDT 04/11/2025 Narrative [facility] ([facility]) - 2025 1:07 PM EDT Performed at: 01 - [address] [id number] Feller Buncher Operator: Gary Zendejas PhD, Phone: [phone] Patient Fasting: Y us Jay Azevedo MD LAB BLOOD ORDERABLES Final Result Performing Organization Address City/State/[facility] Phone Number [facility] (AMBULATORY) [address] [id number], [facility] [address] [place] [address], * XR Hand 2 View Bilateral (04/11/2025 [...] MD 04/17/2025 1:50 PM EDT Workstation ID: [id number] Narrative 04/17/2025 1:50 PM EDT XR HAND [...] MD 04/17/2025 1:50 PM EDT Workstation ID: [id number] Jay Azevedo MD IMG DIAGNOSTIC IMAGING ORDDesiree VALLE Final Result documented in this encounter Visit Diagnoses Diagnosis 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- Primary Psoriatic arthropathy custodial (current) use of non-steroidal anti-inflammatories (nsaid) High risk medication use Vitamin D deficiency Other fatigue documented in this encounter Care Teams Patient Account Representative Relationship Specialty Start Date End Date Manisha Barrera APRN [address] [address] [place] [address] PCP - General Internal Medicine 02/23/24 documented as of this encounter
--- OUTSIDE RECORDS SUMMARY | 2025-04-11 10:15 | XMS_ITS | Encounter Summary ---
Author Organization [facility] Address [address] [place] [address] Care Team Providers Care Blood Bank Order Control Clerk Name Role Phone BruecManisha SIMON Primary Care Provider Encounter Details Date Type Department Care Team (Late st Contact Info) Description 04/11/2025 10:15 AM EDT Ancillary Procedure [facility] [address] [phone] Social History Tobacco Use Types Packs/Day Years [...] on file documented as of this encounter Plan of Treatment Upcoming Encounters Date Type Department Care Team (Late st Contact Info) Description 08/21/2025 9:15 AM EST Office Visit [facility] [address] [place] [phone] Nancy Braga APRN [address] [address] documented as of this encounter Procedures Procedure [...] MD 04/17/2025 1:50 PM EDT Workstation ID: [id number] Narrative 04/17/2025 1:50 PM EDT XR HAND [...] MD 04/17/2025 1:50 PM EDT Workstation ID: [id number] Jay Azevedo MD IM DIAGNOSTIC IMAGING ORDDesiree VALLE Final Result documented in this encounter Visit Diagnoses Not on filedocumented in this encounter Care Teams Blood Bank Order Control Clerk Relationship Specialty Start Date End Date Manisha Barrera APRN [address] [address] [place] [address] PCP - General Internal Medicine 02/23/24 documented as of this encounter
--- OUTSIDE RECORDS SUMMARY | 2025-05-19 10:42 | XMS_ITS | Clinical Summary ---
Author Organization [facility] Address [address] [place] [address] Care Team Providers Care Lien Searcher Name Role Phone Marcin Gurrola MD Primary Care Provider [phone] Encounters Date Type Department Care Team Description 04/25/2025 Orders Only [facility] [address] [facility] [address] [place] [address] Keysha Recinos AMILCAR (acute kidney injury) (CMS/HCC) (Primary Dx); Vitamin D insufficiency 04/25/2025 Orders Only [facility] [address] [place] [address] Keysha Recinos AMILCAR (acute kidney injury) (CMS/HCC) (Primary Dx) from Last 3 Months Social History Tobacco Use Types Packs/Day Years Used Date Smoking Tobacco: Never Assessed Comments Unknown Sex and Gender Information Value Date Recorded Sex Assigned at Not on file Legal Sex Female 6:17 PM EDT Gender Identity Not on file Sexual Orientation Not on file Plan of Treatment Upcoming Encounters Date Type Department Care Team ([facility] st Contact Info) Description 05/22/2025 3:20 PM EDT Office Visit Professional [facility] Nephrology, Bone & Mineral Metabolism [address] [facility], [address] [place] [address] Hai Issa MD [address] [place] [address] Health Maintenance Due Date Last Done Comments [facility]-Depression Screening 1964 [facility]-HIV Screening 1964 [facility]-Hepatitis C Screening 1964 [facility]-Infant/Child/Adol SDOH Screenings 1964 [facility]- SDOH Screenings 1982 [facility]-Adult SDOH Screenings 1982 [facility]-DTaP,Tdap,and Td Vaccine s (1 - Tdap) 1983 [facility]-Pap Smear 1985 [facility]-Cervical Cancer Screening 1994 [facility]-HPV/Cotest 1994 CT Colonography 2009 Colonoscopy 2009 FIT-DNA 2009 FIT 2009 FOBT 2009 Sigmoidoscopy 2009 [facility]-Colorectal Cancer Screening 2009 [facility]-Breast Cancer Screening 2014 [facility]-Pneumococcal Vaccine: 50 + Years (1 of 1 - PCV) 2014 [facility]-Zoster Vaccines (1 of 2) 2014 WOM-BTQJG-29 Vaccine (3 - season) 2025 02/08/2022, 01/08/2022 [facility]-Influenza Vaccine (#1) 2025 [facility]-RSV Vaccine: 60+ Years o r (1 - 1-dose 75+ series) 2039 HPV Vaccines Aged Out No longer eligi ble based on patient's age to complete this topic [facility]-HIB Vaccines Aged Out No longer e ligible based on patient's age to complete this topic [facility]-Hepatitis A Vaccines Aged Out No longer eligible based on patient's age to complete this topic [facility]-IPV Vaccines Aged Out No longer e ligible based on patient's age to complete this topic [facility]-Rotavirus Vaccines Aged Out No lo nger eligible based on patient's age to complete this topic Insurance [facility] Care Teams Lien Searcher Relationship Specialty Start Date End Date Marcin Gurrola MD [address] [place] [address] PCP - General 12/26/20
--- OUTSIDE RECORDS SUMMARY | 2025-05-19 10:42 | XMS_ITS | Encounter Summary ---
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 (nsaid) [...] Description 08/21/2025 9:15 AM EST Office Visit [facility] RHEUMATOLOGY 330 [facility] [address] [place] [address] Nancy Braga APRN [address] [address] documented as of this encounter Visit Diagnoses Diagnosis 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 Psoriatic arthropathy 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
--- OUTSIDE RECORDS SUMMARY | 2025-05-19 10:42 | XMS_ITS | Encounter Summary ---
Author Organization [facility] Address [address] [place] [address] Care Team Providers Care Cargo And Container Inspector Name Role Phone Marcin Gurrola MD Primary Care Provider [phone] Encounter Details Date Type Department Care Team ([facility] Contact Info) Description 04/25/2025 Orders Only [facility] [address] [place] [address] Keysha Recinos AMILCAR (acute kidney injury) ([facility]) (Primary Dx); Vitamin D insufficiency Social History Tobacco Use Types Packs/Day Years Used Date Smoking Tobacco: Never Assessed Comments Unknown Sex and Gender Information Value Date Recorded Sex Assigned at Not on file Legal Sex Female 6:17 PM EDT Gender Identity Not on file Sexual Orientation Not on file documented as of this encounter Plan of Treatment Upcoming Encounters Date Type Department Care Team ([facility] Contact Info) Description 05/22/2025 3:20 PM EDT Office Visit [facility] Nephrology, Bone & Mineral Metabolism [address] [facility], [address] [place] [address] Hai Issa MD [address] [place] [address] Scheduled Orders Name Type Priority Associated Diagnoses Orde r Schedule Renal Function Panel, Plasma Lab Routine AMILCAR (acute kidney injury) ([facility]) Expected: 04/25/2025 (Approximate), Expires: 10/23/2026 CBC and Differential Lab Routine AMILCAR (acute kidney injury) ([facility]) Expected: 04/25/2025 (Approximate), Expires: 10/23/2026 Creatinine, Random, Urine Lab Routine AMILCAR (acute kidney injury) ([facility]) Expected: 04/25/2025 (Approximate), Expires: 10/23/2026 Protein, Random, Urine with Creatinine Lab Routine AMILCAR (acute kidney injury) ([facility]) Expected: 04/25/2025 (Approximate), Expires: 10/23/2026 Urinalysis with reflex microscopic (Culture NOT Included) Lab Routine AMILCAR (acute kidney injury) ([facility]) Expected: 04/25/2025 (Approximate), Expires: 10/23/2026 PTH Intact Total Lab Routine AMILCAR (acute kidney injury) ([facility]) Vitamin D insufficiency Expected: 04/25/2025 (Approximate), Expires: 10/23/2026 Vitamin D 25 Hydroxy Lab Routine AMILCAR (acute kidney injury) ([facility] Vitamin D insufficiency Expected: 04/25/2025 (Approximate), Expires: 10/23/2026 Albumin-creatinine ratio, urine, random Lab Routine AMILCAR (acute kidney injury) ([facility]) Expected: 04/25/2025 (Approximate), Expires: 10/23/2026 documented as of this encounter Visit Diagnoses Diagnosis AMILCAR (acute kidney injury)- Primary Vitamin D insufficiency documented in this encounter Care Teams Cargo And Container Inspector Relationship Specialty Start Date End Date Marcin Gurrola MD [facility] [place] [address] PCP - General 12/26/20 documented as of this encounter
--- OUTSIDE RECORDS SUMMARY | 2025-05-19 10:42 | XMS_ITS | Encounter Summary ---
Author Organization [facility] Address [address] [place] [address] Care Team Providers Care Railcar Brake Operator Name Role Phone Marcin Gurrola MD Primary Care Provider [phone] Reason for Referral * Consultation (Routine) - Authorized Specialty Diagnoses / Procedures Referred By Contsuhas t Referred To Contact Nephrology Diagnoses AMILCAR (acute kidney injury) Hai Issa MD [address] [place] [address] Phone: tel: fax: [facility] [address] [place] [address] Phone: tel: fax: Referral ID Status Reason Start Date Expiration Date Visits Requested Visits Authorized [id number] Authorized Specialty Services Required 04/25/2025 10/25/2026 1 1 Encounter Details Date Type Department Care Team (Late st Contact Info) Description 04/25/2025 Orders Only [facility] [address] [place] [address] Keysha Recinos AMILCAR (acute kidney injury) (CMS/HCC) (Primary Dx) Social History Tobacco Use Types Packs/Day Years Used Date Smoking Tobacco: Never Assessed Comments Unknown Sex and Gender Information Value Date Recorded Sex Assigned at Not on file Legal Sex Female 6:17 PM EDT Gender Identity Not on file Sexual Orientation Not on file documented as of this encounter Plan of Treatment Upcoming Encounters Date Type Department Care Team ([facility] st Contact Info) Description 05/22/2025 3:20 PM EDT Office Visit Professional [facility] Nephrology, Bone & Mineral Metabolism [address] [facility], [address] [place] [address] Hai Issa MD [address] [place] [address] Scheduled Referrals Name Type Priority Associated Diagnoses Order Schedule Ambulatory referral to Nephrology Clinic Outpatient Referral Routine AMILCAR (acute kidney injury) ([facility]) 1 Occurrences starting 04/25/2025 until 10/27/2026 documented as of this encounter Visit Diagnoses Diagnosis AMILCAR (acute kidney injury)- Primary documented in this encounter Care Teams Railcar Brake Operator Relationship Specialty Start Date End Date Marcin Gurrola MD [address] [place] [address] PCP - General 12/26/20 documented as of this encounter
--- OUTSIDE RECORDS SUMMARY | 2025-05-19 10:42 | XMS_ITS | Encounter Summary ---
Author Organization [facility] Address [address] [place] [address] Care Team Providers Care Desktop Support Technician Name Role Phone Manisha Barrera SIMON Primary Care Provider [phone] Encounter Details Date Type Department Care Team (Late st Contact Info) Description 11/08/2024 Results Follow-Up [facility] RHEUMATOLOGY [address] [address] Nancy Braga, RESIDENTIAL TECH [address] [address] Social History Tobacco Use Types Packs/Day Years [...] Description 08/21/2025 9:15 AM EST Office Visit [facility] RHEUMATOLOG[facility] [address] [address] Nancy Braga, RESIDENTIAL TECH [address] [address] documented as of this encounter Visit Diagnoses Not on filedocumented in this encounter Care Teams Desktop Support Technician Relationship Specialty Start Date End Date Manisha Barrera APRN [facility] [facility] PCP - General Internal Medicine 02/23/24 documented as of this encounter
--- OUTSIDE RECORDS SUMMARY | 2025-05-19 10:42 | XMS_ITS | Encounter Summary ---
Author Organization [facility] Address [address] [place] [address] Care Team Providers Care Psychiatric Therapist Name Role Phone BruceManisha SIMON Primary Care Provider Encounter Details Date Type Department Care Team (Late Contact Info) Description 04/17/2025 Results Follow-Up [facility] RHEUMATOLOGY [address] [address] Jay Azevedo MD [address] [phone] Social History Tobacco Use Types Packs/Day Years [...] Office Visit [facility] RHEUMATOLOGY [address] [address] Nancy Braga APRN [address] [phone] documented as of this encounter Visit Diagnoses Not on filedocumented in this encounter Care Teams Psychiatric Therapist Relationship Specialty Start Date End Date Manisha Barrera APRN [facility] [place] [address] PCP - General Internal Medicine 02/23/24 documented as of this encounter
--- OUTSIDE RECORDS SUMMARY | 2025-05-19 10:43 | XMS_ITS | Clinical Summary ---
[facility] Organization [facility] Address [address] [place] [address] Care Team Providers Care Belt Machine Operator Name Role Phone Manisha Barrera APRN [...] mouth Daily. Active hydrOXYzine (ATARAX) 25 MG tabletIndication s: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,meterman (current) use of non-steroidal anti-inflammator ies (nsaid) Take 1 tablet by mouth Daily As Needed for Itching. 30 tablet 5 5 Active Risankizumab-rza a (Skyrizi Pen) 150 MG/ML solution auto-injector Inject 150 mg under the skin into the appropriate area as directed Every 12 (Twelve) Weeks. 1 mL 1 5 Active lisinopril (PRINIVIL,ZESTRI L) 20 MG tablet Take 1 tablet by mouth Daily. 5 Active hydrALAZINE (APRESOLINE) 25 MG tablet TAKE 1 TABLET BY MOUTH THREE TIMES DAILY NEEDED FOR HIGH BLOOD PRESSURE 5 Active sulfaSALAzine (AZULFIDINE) 500 MG tabletIndication s: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,meterman (current) use of non-steroidal anti-inflammator ies (nsaid) Take 3 tablets by mouth 2 (Two) Times a Day. 540 tablet 1 5 Active Active Problems Problem Noted Date Diagnosed Date [...] were discussed with the patient. Handout provided. meterman (current) use of n on-steroidal anti-inflammatories (nsaid) [...] EST): + psoriasis, + DEANGELO 1:160, + SENIOR JAVA WEB DEVELOPER 101. She has had synovitis. Previous Rx: [...] heart, and with her + DEANGELO and SENIOR JAVA WEB DEVELOPER, I do not want to complicate this [...] EDT): + psoriasis, + DEANGELO 1:160, + SENIOR JAVA WEB DEVELOPER 101. She has had synovitis. Previous Rx: [...] heart, and with her + DEANGELO and SENIOR JAVA WEB DEVELOPER, I do not want to complicate this [...] Department Care Team Description 04/17/2025 Results Follow-Up [facility] [address] [phone] Jay Azevedo MD 04/11/2025 10:15 AM EDT Ancillary Procedure [facility] [address] [place] [phone] 04/11/2025 9:30 AM EDT Office Visit [facility] [address] [place] [phone] Jay Azeevdo MD 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 (Primary Dx); meterman (current) use of non-steroidal anti-inflammatories (nsaid); High risk medication use; Vitamin D deficiency; Other fatigue 04/11/2025 Travel 03/30/2025 Refill [facility] [address] [place] [phone] Jay Azevedo MD 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; meterman (current) use of non-steroidal anti-inflammatories (nsaid) from [...] Office Visit [facility] [address] [phone] Nancy Braga APRN [address] [facility] [address] [address] Health Maintenance Due Date Last Done Comments [...] ANNUAL PHYSICAL 04/08/2017 HEPATITIS C SCREENING 04/08/2017 INFLUENZA VACCINE 03/15/2025 Procedures Procedure Name Priority Date/Time Associated Diagnosis Comments CBC AND DIFFERENTIAL Routine 04/11/2025 10:16 AM EDT VITAMIN B12 Routine 04/11/2025 10:16 AM EDT CYCLIC CITRUL PEPTIDE ANTIBODY, IGG/IGA Routine 04/11/2025 10:16 AM EDT VITAMIN D,25-HYDROXY Routine 04/11/2025 10:16 AM EDT RHEUMATOID FACTOR, QUANT Routine 04/11/2025 10:16 AM EDT TSH Routine 04/11/2025 10:16 AM EDT DEANGELO BY IFA, REFLEX 9-BIOMARKERS PROFILE Routine 04/11/2025 10:16 AM EDT QUANTIFERON-TB GOLD PLUS Routine 04/11/2025 10:16 AM EDT ~MICROSCOPIC EXAMINATION Routine 04/11/2025 10:16 AM EDT UA/M W/RFLX CULTURE ([facility] ONLY) Routine 04/11/2025 10:16 AM EDT HLA-B27 ANTIGEN Routine 04/11/2025 10:16 AM EDT 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 High risk medication use QUANTIFERON-TB GOLD PLUS (LI-HEP) Routine 04/11/2025 10:16 AM EDT 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 High risk medication use SEDIMENTATION RATE Routine 04/11/2025 10 :16 AM EDT 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 High risk medication use C-REACTIVE PROTEIN Routine 04/11/2025 10 :16 AM EDT 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 High risk medication use COMPREHENSIVE METABOLIC PANEL Routine 04/11/2025 10:16 AM EDT 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 High risk medication use XR HAND 2 VW BILATERAL Routine 10:06 AM EDT 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 from Last 3 Months Results * DEANGELO by IFA, Reflex 9-biomarkers profile [...] methodology. 04/11/2025 10:1 6 AM EDT 04/11/2025 Narrative [facility] ([facility]BULATORY) - 2025 1:07 PM EDT Performed at: [address] [place] [id number] It Intern: Gary Zendejas PhD, Phone: [phone] Patient Fasting: Y us Jay Azevedo MD LAB BLOOD ORDERABLES Final Result Performing Organization Address [facility] Co de Phone Number [facility] [address] [place] [address], [facility] [address] [place] [address], * QuantiFERON-TB Gold Plus (04/11/2025 10:16 AM EDT) [facility] QuantiFERON Criteria Comment [facility] Comment: QuantiFERON-TB [...] 10:1 6 AM EDT 04/11/2025 Narrative [facility] (AMBULATORY) - 2025 1:07 PM EDT Performed at: [address] [place] [id number] It Intern: Gary Zendejas PhD, Phone: [phone] Patient Fasting: Y us Jay Azevedo MD LAB BLOOD ORDERABLES Final Result Performing Organization Address [facility]/ZIP Co de Phone Number [facility] [address] [place] [address], [facility] [address] [place] [address], * QuantiFERON-TB Gold Plus (Li-Hep) (04/11/2025 10:16 AM EDT) QuantiFERON Incubation Incubation performed. [facility] QUANTIFERON-TB [...] 2025 1:07 PM EDT Performed at: - [address] [id number] It Intern: Gary Zendejas PhD, Phone: [phone] Patient Fasting: Y us Jay Azevedo MD LAB BLOOD ORDERABLES Final Result [facility] (AMBULATORY) [address] [place] [address], [facility] [address] [place] [address], * UA / M With / Rflx Culture([facility] ONLY) - (04/11/2025 10:16 AM EDT) Pathologist [facility] Specific [place], UA 1.010 1.005 - 1.030 [facility] [...] - 2025 1:07 PM EDT Performed at: [address] [place] [address] [place] [id number] It Intern: Gary Zendejas PhD, Phone: [phone] Patient Fasting: Y us Jay Azevedo MD URINE ORDERABLES Final Resu lt Performing Organization Address City/[facility]/ZIP Co de Phone Number [facility] ([facility]ORY) [address] [place] [address], [place] [phone] [facility] [address] [place] [address], [place] [phone] * Microscopic Examination - (04/11/2025 10:16 AM EDT) WBC, UA None seen 0 - 5 [...] - 2025 1:07 PM EDT Performed at: [facility] [address] [id number] It Intern: Gary Zendejas PhD, Phone: [phone] Patient Fasting: Y us Jay Azevedo MD URINE ORDERABLES Final Resu lt Performing Organization Address City/[facility]/ZIP Co de Phone Number [facility] ([facility]UL[facility]ORY) [address] [place] [address], [place] [phone] [facility] [address] [place] [address], [place] [phone] * Rheumatoid Factor (04/11/2025 10:16 AM EDT) RA Latex Turbid <10.0 <14.0 IU/mL [facility] 04/11/2025 10:1 6 AM EDT 04/11/2025 Narrative [facility] - 2025 1:07 PM EDT Performed at: 01 - [facility] [address] [place], [place] [id number] It Intern: Gary Zendejas PhD, Phone: [phone] Patient Fasting: Y Jay Azevedo MD LAB BLOOD ORDERABLES Final Result [facility] [address] [place] [address], [facility] [address] [place] [address], * HLA-B27 Antigen (04/11/2025 10:16 AM EDT) [facility] HLA B27 Negative [facility] Comment: HLA-B*27 Negative B27 allele interpretation for all loci based on IMGT/HLA database version 3.58 This test was developed and its performance characteristics determined by [employer]. It has not been cleared or approved by the Food and Drug Administration. The FDA has determined that such clearance or approval is not necessary. HLA Lab CLIA ID Number [id number] HISTOCOMPATIBILITY SECTION DIRECTOR: Balbir Castillo, PhD, F([facility]) This test was performed using Polymerase Chain Reaction (PCR) and Sequence Specific Oligonucleotide Probes (SSOP) technique. Sequence Based Typing (SBT) may be used as a supplemental method when necessary. If you have questions, please call HLA customer service at or email at [email or web address]. Blood 04/11/2025 10:1 6 AM EDT 04/11/2025 Narrative [facility] - 2025 1:07 PM EDT Performed at: 02 - [address] [id number] It Intern: Duyen Chu PhD, Phone: [phone] Patient Fasting: Y us Jay Azevedo MD LAB BLOOD ORDERABLES Final Result Performing Organization Address City/[facility]/ZIP Co de Phone Number [facility]) [address] [place] [address], [facility] [address] [place] [address], * Cyclic Citrul Peptide Antibody, IgG / IgA (04/11/2025 10:16 AM EDT) CCP Antibodies IgG/IgA 3 0 - 19 units [facility] Comment: Negative <20 Weak positive 20 - 39 Moderate positive 40 - 59 Strong positive >59 04/11/2025 10:1 6 AM EDT 04/11/2025 Narrative [facility] - 2025 1:07 PM EDT Performed at: 01 - [facility] [address] [place] [id number] It Intern: Gary Zendejas PhD, Phone: [phone] Patient Fasting: Y us Jay Azevedo MD LAB BLOOD ORDERABLES Final Result Performing Organization Address [facility] Co de Phone Number [facility] [address] [place] [address], [facility] [address] [place] [address], * Vitamin D,25-Hydroxy (04/11/2025 10:16 AM EDT) Pathologist [facility] 25 Hydroxy, Vitamin D 37.8 30.0 - 100.0 ng/mL [facility] Comment: Vitamin D deficiency has been defined by the [place] of Medicine and an Endocrine Society practice guideline as a level of serum 25-OH vitamin D less than 20 ng/mL (1,2). The Endocrine Society went on to further define vitamin D insufficiency as a level between 21 and 29 ng/mL (2). 1. IOM ([place] of [employer]). 2010. Dietary reference intakes for calcium and D. [place]: The National Academies Press. 2. Tracey FRANCO, Vinay PULLIAM, Vivienne RODRIGUEZ, et al. Evaluation, treatment, and prevention of vitamin D deficiency: an Endocrine Society clinical practice guideline. JCEM. 2011 Feb; 96(7):1911-30. 04/11/2025 10:1 6 AM EDT 04/11/2025 Narrative [facility] - 2025 1:07 PM EDT Performed at: - [address] [id number] It Intern: Gary Zendejas PhD, Phone: [phone] Patient Fasting: Y us Jay Azevedo MD LAB BLOOD ORDERABLES Final Result Performing Organization Address [facility] Co de Phone Number [facility] ([facility]) [address] [place] [address], [place] [phone] [facility] [address] [place], [place] [address], [place] [phone] * Sedimentation Rate (04/11/2025 10:16 AM EDT) Sed Rate 37 0 - 40 mm/hr [facility] Blood 04/11/2025 10:1 6 AM EDT 04/11/2025 [facility] (AMBULATORY) - 2025 1:07 PM EDT Performed at: [facility] [address] [id number] It Intern: Gary Zendejas PhD, Phone: [phone] Patient Fasting: Y us Jay Azevedo MD LAB BLOOD ORDERABLES Final Result Performing Organization Address City/[facility]/ZIP Co de Phone Number [facility]) [address] [place] [address], [place] [phone] [facility] [address] [place] [address], * (ABNORMAL) CBC & Differential (04/11/2025 10:16 AM EDT) WBC 14.2(H) 3.4 - 10.8 x10E3/uL [facility] [...] 1:07 PM EDT Performed at: 01 - [address], [place], [place] [id number] It Intern: Gary Zendejas PhD, Phone: [phone] Patient Fasting: Y us Jay Azevedo MD LAB BLOOD ORDERABLES Final Result [facility] ([facility]) [address] [place] [address], [place] [phone] [facility] [address] [place] [address], [place] [phone] * (ABNORMAL) C-reactive Protein (04/11/2025 10:16 AM EDT) Pathologist [facility] C-Reactive Protein 37(H) 0 - 10 mg/L [facility] Blood 04/11/2025 10:1 6 AM EDT 04/11/2025 Narrative [facility] ([facility]) - 2025 1:07 PM EDT Performed at: [address] [place] [id number] It Intern: Gary Zendejas PhD, Phone: [phone] Patient Fasting: Y us Jay Azevedo MD LAB BLOOD ORDERABLES Final Result Performing Organization Address [facility] Co de Phone Number [facility] [address] [place] [address], [place] [phone] [facility] [address] [place] [address], [place] [phone] * TSH (04/11/2025 10:16 AM EDT) [facility] TSH 3.750 0.450 - 4.500 uIU/mL [facility] 04/11/2025 10:1 6 AM EDT 04/11/2025 Narrative [facility] ([facility]) - 2025 1:07 PM EDT Performed at: [address] [place] [id number] It Intern: Gary Zendejas PhD, Phone: [phone] Patient Fasting: Y us Jay Azevedo MD LAB BLOOD ORDERABLES Final Result Performing Organization Address City/[facility]/ZIP Co de Phone Number [facility]) [address] [place] [address], [place] [phone] [facility] [address] [place] [address], [place] [phone] * (ABNORMAL) Vitamin B12 (04/11/2025 10:16 AM EDT) Pathologist [facility] Vitamin B-12 1,259(H) 232 - 1,245 pg/mL [facility] 04/11/2025 10:1 6 AM EDT 04/11/2025 Narrative [facility] - 2025 1:07 PM EDT Performed at: 01 - [address] [id number] It Intern: Gary Zendejas PhD, Phone: [phone] Patient Fasting: Y us Jay Azevedo MD LAB BLOOD ORDERABLES Final Result [facility] [address] [place] [address], [place] [phone] [facility] [address] [place] [address], * (ABNORMAL) Comprehensive Metabolic Panel (04/11/2025 10:16 AM EDT) Pathologist [facility] Glucose 92 70 - 99 mg/dL [facility] [...] 10:1 6 AM EDT 04/11/2025 Narrative [facility] (AMBULATORY) - 2025 1:07 PM EDT Performed at: - [facility] [address] [place] [id number] It Intern: Gary Zendejas PhD, Phone: [phone] Patient Fasting: Y us Jay Azevedo MD LAB BLOOD ORDERABLES Final Result [facility] (AMBULATORY) [address] [place] [address], [place] [phone] [facility] [address] [place] [address], * XR Hand 2 View Bilateral (04/11/2025 [...] MD 04/17/2025 1:50 PM EDT Workstation ID: [id number] Narrative 04/17/2025 1:50 PM EDT XR HAND [...] MD 04/17/2025 1:50 PM EDT Workstation ID: [id number] Jay Azevedo MD IMG DIAGNOSTIC IMAGING ORDDesiree VALLE Final Result from Last 3 Months Insurance [place] [id number] [facility] Care Teams Belt Machine Operator Relationship Specialty Start Date End Date Manisha Barrear APRN [address] [facility] [address] [facility] G3 AARON [place] [id number] PCP - General Internal Medicine 02/23/24
--- OUTSIDE RECORDS SUMMARY | 2025-05-19 10:43 | XMS_ITS | Patient Health Record ---
Author Organization [facility] Address [address] [address] [place] [address] Care Team Providers Care Statistical Developer Name Role Phone Fely Lopez [phone] Allergies Allergen (clinical drug ingredient) Drug/Non Drug Allergy documented on EMR Reaction Allergy Type Onset Date Status CODEINE PHOSPHATE (CODEINE PHOSPHATE SOLN) Unspecified Drug Allergy 11/21/2012 Active Reason For Referral No Information Problems Problem Type SNOMED Code ICD Code Onset Dates Problem Status W/U Status Risk Notes Problem Gynecological examination normal (11963359646652 4) Cervical smear, as part of routine gynecological examination (Z01.419) 016 Active confirmed Annual without abnormal findings Problem Breakthrough bleeding (09972974) Breakthrough bleeding (N92.1) 013 Active confirmed [place] [...]
--- OUTSIDE RECORDS SUMMARY | 2025-05-19 10:43 | XMS_ITS | Encounter Summary ---
[facility] Address [address] [place] [address] Care Team Providers Care Bunk Assembler Name Role Phone Manisha Barrera APRN Primary Care Provider [phone] Encounter Details Date Type Department Care Team [...] Description 08/21/2025 9:15 AM EST Office Visit [facility] [address] [place] [phone] Nancy Braga APRN [address] [facility] [address] [place] [address] documented as of this encounter Visit Diagnoses Not on filedocumented in this encounter Care Teams Bunk Assembler Relationship Specialty Start Date End Date Manisha Barrera APRN [address] [facility] [address] [place] [address] [place] [address] PCP - General Internal Medicine 02/23/24 documented as of this encounter
--- OUTSIDE RECORDS SUMMARY | 2025-05-19 10:43 | XMS_ITS ---
Author Organization [facility] Address [address] [place] [id number] Care Team Providers Care High Voltage Electrician Name Role Phone Manisha Barrera APRN Primary Care Provider Rheumatology - External Fill Status:Enrolled (Active) Start date:02/23/2024 Enrollment date:02/23/2024 Enrollment reason:Identified as being on target medication Current support & services provided:Benefits Investigation, External Pharmacy Dispensing Linked medications:Adalimumab (Patient Reported) Linked problems: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 (Active) Continued Care and Services Coordination
--- OUTSIDE RECORDS SUMMARY | 2025-05-19 10:43 | XMS_ITS | Data Portability ---
Author Organization [facility] Address [address] [place] [address] Assessment No assessment recorded. Plan of Treatment Reminders Order Date Submit Date Provider Last Modified By Organization Details Last Modified Time Details Appointments None recorded. Lab None recorded. Referral None recorded. Procedures None recorded. Surgeries None recorded. Imaging None recorded. Medication Orders prednisone 10 mg tablets in a dose pack 2023 024 [facility], [address] [place], [address], 4 15:08:48 tizanidine 4 mg tablet 2023 024 [facility], [address] [place], [address], 4 15:08:46 Patient TargetsNo targets recorded. Patient InstructionsNo instructions recorded. Reason for Referral None Reported. Medical Equipment None Reported. Medications Name Sig Start Date Stop Date Status Note LastModified by Organization Details LastModified Time welcome kit - general kit NEW PATIENT GUIDE active Not Available Not Available No t Available furosemide 40 mg tablet TAKE 1 TABLET BY MOUTH ONCE DAILY active Not Available Not Available No t Available atorvastatin 20 mg tablet TAKE 1 TABLET BY MOUTH ONCE DAILY active Not Available Not Available No t Available tizanidine 4 mg tablet TAKE 1 TABLET BY MOUTH EVERY 6 HOURS NEEDED active Not Available Not Available No t Available prednisone 5 mg tablet TAKE 4 TABLETS BY MOUTH DAILY FOR 3 DAYS, THEN 3 TABLETS BY MOUTH DAILY FOR 3 DAYS, THEN 2 TABLETS BY MOUTH DAILY FOR 3 DAYS, THEN 1 TABLET BY MOUTH DAILY FOR 3 DAYS, THEN STOP active Not Available Not Available No t Available aspirin 81 mg tablet,delay ed release TAKE 1 TABLET BY MOUTH ONCE DAILY active Not Available Not Available No t Available leflunomide 20 mg tablet TAKE 1 TABLET BY MOUTH ONCE DAILY active Not Available Not Available No t Available bisoprolol fumarate 5 mg tablet TAKE 1 TABLET BY MOUTH ONCE DAILY active Not Available Not Available No t Available prednisone 10 mg tablets in a dose pack TAKE BY MOUTH DIRECTED ON INSIDE OF PACKAGE active Not Available Not Available No t Available meloxicam 7.5 mg tablet TAKE 1 TABLET BY MOUTH TWICE DAILY active Not Available Not Available No t Available methotrexate sodium 2.5 mg tablet TAKE 8 TABLETS BY MOUTH ONCE A WEEK active Not Available Not Available No t Available lisinopril 10 mg tablet TAKE 1 TABLET BY MOUTH ONCE DAILY active Not Available Not Available No t Available folic acid 1 mg tablet TAKE 1 TABLET BY MOUTH ONCE DAILY EXCEPT THE DAY YOU TAKE YOUR MTX active Not Available Not Available No t Available hydroxyzine HCl 25 mg tablet TAKE 1 TABLET BY MOUTH ONCE DAILY NEEDED FOR ITCHING active Not Available Not Available No t Available methylpredni solone 4 mg tablets in a dose pack TAKE BY MOUTH DIRECTED ON INSIDE OF PACKAGE active Not Available Not Available No t Available lisinopril 40 mg tablet TAKE 1 TABLET BY MOUTH ONCE DAILY active Not Available Not Available No t Available spironolacto ne 50 mg tablet TAKE 1 TABLET BY MOUTH ONCE DAILY active Not Available Not Available No t Available bupropion HCl XL 150 mg 24 hr tablet, extended release TAKE 1 TABLET BY MOUTH ONCE DAILY FOR MOOD active Not Available Not Available No t Available Alcohol Prep Pads USE WITH COSENTYX active Not Available Not Available No t Available SharpSafety Container USE FOR NEEDLE DISPOSAL active Not Available Not Available No t Available Cosentyx Pen 150 mg/mL subcutaneous pen injector INJECT 150 MG SUBCUTANEOU SLY AT WEEKS 0, 1, 2, 3, & 4. (LOADING DOSES) [L40.9] active Not Available Not Available No t Available Vitals Date Recorded Body weight Body temperature Oxygen saturation Oxygen saturation in Arterial blood by Pulse oximetry Heart rate Systolic And Diastolic Provider Name and Address Organization Details Last Updated DateTime 4 [address]0311.3 2 g 97.5 [degF] 95 % 95 % 76 /min 136/75 mm[Hg] Rossy Watt Malachi [facility] [place] 14:12:53 Social History None recorded. Functional Status None recorded. Mental Status None recorded. Family History Nothing Reported. Medical History No medical history recorded. Gynecological HistoryNo gynecological history recorded. Obstetrics History GPAL:G 0 P 0 0 0 0 Past Encounters Encounter ID Performer Location Encounter Start Date Encounter Closed Date Diagnosis/Indication Diagnosis SNOMED-CT Code Diagnosis ICD10 Code Diagnosis IMO Codes Diagnosis Note [id number] Americo Hernandez MD [facility] [address] [place] [id number] 04/05/2024 13:59:23 04/05/2024 15:00:46 Acute thoracic back pain 362500605 M54.6 Rest, ice, gentle stretches, steroid and muscle relaxer. Health Concerns Section Related Observation LastModified by Organization Detai ls LastModified Time None Recorded Concern Status LastModified by Organization Details LastModified Time None Recorded Advance Directives Directive None Recorded Payers Insurance Date Sequence Insurance Name Policy Number Policy Salmon Covered Member ID Salmon Member ID Guarantor Name 04/05/2024 1 [place] [id number] Georgia Watts [id number] Georgia Watts 08/06/2021 1 MEDICAID-[facility] CHOICES - FFS/TRADITION AL Georgia Watts [id number] Georgia Watts 11/15/2020 1 [facility] [id number] [place] aWtts [id number] Georgia Watts 04/05/2024 1 [place] [id number] Georgia Watts [id number] Georgia Watts 04/05/2024 1 [place] [id number] Georgia Watts [id number] Georgia Watts 02/13/2022 1 [place] [id number] Georgia Watts [id number] Georgia Watts Notes Date Note Type Note Provider Name and Address Organization Details Recorded Time 04/05/2024 text/html ROS as noted in the HPI Bilateral mid back pain x 1 week. No known injury. About 3 weeks ago had fallen on buttocks but this is not the area she is hurting and that soreness had resolved prior to this particular pain starting. Worse with twisting and certain positions. Americo Hernandez MD [address], [place], [address], [facility] [place] - [place] & [place] 04/05/2024 15:08:57 OBGyn Episode No OBEpisode recorded.
[2025-05-19 11:03] LABS: Microscopic, Urine URINE MICROSCOPIC (MICROSCOPIC)
[2025-05-19 11:34] LABS: Hematocrit 36.6 % (37.0-47.0); Hemoglobin 11.9 g/dL (12.2-16.2); Immature Granulocytes % 0.4 %; Mean Corpuscular HGB Conc 32.5 g/dL (31.8-35.4); Mean Corpuscular Hemoglobin 30.8 pg (27.0-31.2); Mean Corpuscular Volume 94.8 fl (81-99); Nucleated Red Blood Cells % 0 %; Platelet Count 269 K/mm3 (142-424); Red Blood Count 3.86 M/mm3 (4.20-5.40); Red Cell Distribution Width-SD 42.2 fL; White Blood Count 6.9 K/mm3 (4.8-10.8)
[2025-05-19 12:27] LABS: Chloride 103 mmol/L (98-107); Sodium 140 mmol/L (136-145)
[2025-05-19 12:28] LABS: Albumin Level 4.3 g/dl (3.5-5.0); Potassium 5.0 mmoL/L (3.5-5.1)
[2025-05-19 12:31] LABS: Anion Gap 13.0 mEq/L (5-15); Blood Urea Nitrogen 23 mg/dl (7-17); Calcium 9.9 mg/dl (8.4-10.2); Carbon Dioxide 29 mmol/L (22.0-30.0); Creatinine,Serum 1.10 mg/dl (0.52-1.04); Estimated Glomerular Filt Rate 50 ml/min (>60); GFR (African American) 61 ML/MIN (>60); Glucose 105 mg/dl (74-100); Phosphorous 3.8 mg/dl (2.5-4.5)
[2025-05-19 12:47] LABS: 25-OH Vitamin D, Total 50.0 ng/mL (30-100)
[2025-05-19 16:41] LABS: Bilirubin,Urine Negative (Negative); Color,Urine YELLOW (Yellow); Glucose,Urine (UA) Negative (Negative); Ketones,Urine Negative (Negative); Leukocyte Esterase,Urine Negative (Negative); PH,Urine 6.0 (5.0-8.5); Protein,Urine Negative (Negative); Specific Gravity, Urine 1.010 (1.005-1.030); Urobilinogen,Urine 0.2 EU/dl (0.2)
[2025-05-19 17:47] LABS: Bacteria,Urine 1+ /lpf
== END 2025-05-19 23:59 | disposition home or self-care (01) ==
LOC: LAB 10:40
PROVIDERS: PCP Nurse Practitioner Family; Visit Provider Student in an Organized Health Care Education/Training Program
DX: N17.9 Acute kidney failure, unspecified (principal); E55.9 Vitamin D deficiency, unspecified
CPT/HCPCS: 36415; 80069; 81001; 82043; 82306; 82570; 83970; 84156; 85025